=== PATIENT | male | born 1970 | race Caucasian/White ===

== ENCOUNTER 2018-03-30 18:09 | Observation (INO) ==
[2018-03-30] MEDS ORDERED: IOPAMIDOL 100 ML BOTTLE IV ONE (18:46)
[2018-03-30] MEDS ORDERED: NALOXONE HCL 0.4 MG/ML VIAL IV PRN (19:07)
[2018-03-30] MEDS ORDERED: ACETAMINOPHEN 325 MG TABLET PO PRN (19:07)
[2018-03-30] MEDS ORDERED: ONDANSETRON 4 MG/2 ML VIAL IV PRN (19:07)
[2018-03-30] MEDS ORDERED: DEXTROSE 50% 50 ML VIAL IV ONE ×2 (19:08)
[2018-03-30] MEDS ORDERED: CARVEDILOL 12.5 MG TABLET PO SCH ×2 (19:15→20:45)
[2018-03-30] MEDS ORDERED: hydrALAZINE 20 MG/ML VIAL IV PRN (19:19)
[2018-03-30] MEDS ORDERED: CARVEDILOL 12.5 MG TABLET PO ONE (19:45)
[2018-03-30] MEDS: 0.9 % SODIUM CHLORIDE 10 ML SYRINGE IV SCH ×2 (19:58→22:20)
[2018-03-30] MEDS: HEPARIN 5,000 UNIT/ML VIAL SQ SCH (19:58)
--- NOTE | 2018-03-30 20:00 | XRay Report ---
HISTORY: End-stage renal disease with hypokalemia and shortness of breath FINDINGS: The heart is mild to moderately enlarged but magnified by portable technique. There is no congestive heart failure or pleural effusion. The lungs are clear. The cardiomegaly has remained stable since 08/29/17. IMPRESSION: Stable cardiomegaly and no evidence of pneumonia or fluid overload Interpreted and Authenticated by: Cisco Murphy 03/30/18
--- NOTE | 2018-03-30 20:02 | XRay Report ---
HISTORY: Diarrhea and end-stage renal disease FINDINGS: The bowel gas pattern is normal. There is no bowel dilatation or abnormal air-fluid levels. No free intra-abdominal air is present. Several vascular calcifications are present in the pelvis and there are also calcifications in the prostate. Mild arthritis is seen in the lumbar spine. IMPRESSION: Normal exam Interpreted and Authenticated by: Cisco Murphy 03/30/18
[2018-03-30] MEDS ORDERED: oxyCODONE HCL 5 MG TABLET PO PRN (20:39)
--- NOTE | 2018-03-30 21:01 | Internal Med History&Physical ---
Medical - H&P: HPI Patient information: Note initiated : 03/30/18 at 8:43 pm Service Date, if different from initiated Date: [] Patient: Blake Camacho 47 y/o M admitted on 03/30/18 for hypokalemia, end stage renal. Chief Complaint: [] History of present illness: Mr. Camacho is a 47 year old M with h/o ESRD on HD, secondary to polycystic Kidney disease, the patient presented to [facility] emergency room today for not feeling well since this morning. The patient had been experiencing severe diarrhea for 1 day. The patient notes he was doing okay yesterday. He noticed some nausea, weakness fatigue. He is experienced these symptoms before when his potassium level was elevated and therefore he decided to come to the ER. The patient notes he had taken some antibiotics a week ago? The patient otherwise denies any other complaints or concerns. In the emergency room at [facility] the patient was hemodynamically stable, blood pressure elevated. Labs showed hemoglobin of 12.9, WBC 7.8 platelets 241. Sodium 133, potassium 9.0 bicarbonate 22 BUN 130 creatinine 12.9 glucose 90 calcium 9.5. EKG showed signs of hyperkalemia like peaked T waves, prolonged OK interval and widening of QRS complex. The patient was given hyperkalemia protocol in the emergency room at [facility] and nephrology was consulted. [facility] does not have dialysis, and therefore the patient was transferred to [facility] for urgent dialysis. On presentation at [facility] the patient was hemodynamically stable afebrile, blood pressure was elevated however the patient was also in mild distress, he was sweating all over, his glucose level was 50. Likely secondary to dextrose and insulin injection given as part of hyperkalemia protocol. Patient was given D50, along with sandwiches to eat. Nephrology was consulted and dialysis orders were placed. Liqoc-yo-[id number] chemistry was done on admission which showed that the patient's potassium had dropped down to 7.4 All systems: reviewed and no additional remarkable complaints except as stated ( As per HPI rest negative) Medical - H&P: PMH Medical history: Medical History (Last Reviewed 11/02/16 @ 14:23 by Teresa Hewitt DO) Amyloidosis (Suspected) Hand arthropathy (Acute) Rash and nonspecific skin eruption (Chronic) Light cigarette smoker (1-9 cigarettes per day) (Chronic) Marijuana use (Chronic) Chewing tobacco use (Chronic) Polycystic kidney disease (Chronic ~1985) AV fistula (Chronic) Vitamin D deficiency (Chronic) Tobacco abuse (Chronic) Renal osteodystrophy (Chronic) Prostate infection (Chronic) Obesity (Chronic) Lumbar disc disease (Chronic) Hyperlipidemia (Chronic) Low back pain (Chronic) Hypertension, essential (Chronic) Hearing loss (Chronic) Electrolyte and fluid disorders not elsewhere classified (Chronic) Chronic kidney disease, stage V (Chronic) Bladder disorder (Chronic) Hematuria (Acute) Lower extremity edema (Acute) Abscess of skin (Acute) Headache (Acute) Anxiety disorder (Resolved) Idiopathic hypersomnia with long sleep time (Resolved) Nonspecific finding on examination of urine (Resolved) Stress reaction, acute (Resolved) Surgical history: Past Surgical History (Last Reviewed 11/02/16 @ 14:23 by Teresa Hewitt DO) History of surgery (Chronic ~04/2011) Pertinent family history: Family History (Last Reviewed 11/02/16 @ 14:23 by Teresa Hewitt DO) Mother Arthritis Breast cancer Diabetes Cancer of intestinal tract Father Hypertension, essential Polycystic kidney, autosomal dominant Family/Other Polycystic kidney, autosomal dominant Polycystic kidney disease Family/Other Polycystic kidney disease Medical - H&P: Meds Home Medications Medication Instructions Recorded Confirmed Type Calcium Acetate [Phoslo] 2,001 mg PO TIDCC 03/14/15 11/02/16 History Cinacalcet HCl [Sensipar] 60 mg PO HS 03/14/15 11/02/16 History Ergocalciferol (Vitamin D2) 50,000 unit PO WEEKLY 03/14/15 11/02/16 History [Drisdol] Folic Acid/Vit Bcomp,C [Dialyvite 1 each PO DAILY 03/14/15 11/02/16 History Tablet] Loperamide [Imodium] 2 mg PO PRN PRN 03/14/15 11/02/16 History Nulecit 62.5 mg IV WEEKLY 03/14/15 11/02/16 History Nutritional Supplement [Novasource 237 ml PO WEEKLY 03/14/15 11/02/16 History Renal] Carvedilol [Coreg] 25 mg PO BID 03/26/16 11/02/16 History metronidazole 0.75 % topical cream 1 applic TOPICAL BID #45 g 10/19/16 11/02/16 Rx rosuvastatin 10 mg tablet 10 mg PO QDAY #30 tab 11/02/16 11/02/16 Rx oxyCODONE/APAP [Percocet 5-325 mg] 1 tab PO Q4-6H PRN #10 tab 12/14/16 Rx Allergies Allergy/AdvReac Type Severity Reaction Status Date / Time lisinopril [LISINOPRIL] Allergy Unknown SHUTS DOWN Verified 11/02/16 14:12 KIDNEYS Penicillins [PENICILLINS] Allergy Unknown RASH, STOP Verified 11/02/16 14:12 BREATHING, AMOXICILLIN IS OK, KEFLEX OK tramadol [TRAMADOL] Allergy Unknown NAUSEA Verified 11/02/16 14:12 VOMITING ketamine [KETAMINE] AdvReac Intermediate IRRATIONAL, Verified 11/02/16 14:12 EXCITABILITY, PSYCHOSIS bee venom protein (honey bee) AdvReac Unknown Verified 03/30/18 20:45 latex AdvReac Unknown Verified 03/30/18 20:45 Medical - H&P: Exam - Constitutional Exam: GENERAL: The patient is a well-developed, well-nourished, in mild distress but is alert and oriented x3. The patient had some sweating VITAL SIGNS: Reviewed and as noted elsewhere. HEENT: Head is normocephalic and atraumatic. Extraocular muscles are intact. Pupils are equal, round, and reactive to light. Nares appeared normal. Mouth appears any without lesions. Mucous membranes are moist. NECK: Normal to inspection, Supple, No lymphadenopathy or thyromegaly. LUNGS: Air entry equal on both sides, no wheezing, crackles or rhonchi noted. No accessory muscles of respiration HEART: Regular rate and rhythm normal, S1 and S2 heard, no Gallop, S3 or Rub Noted, No Gross murmur heard. ABDOMEN: Soft, nontender, and nondistended. Positive bowel sounds. No hepatosplenomegaly was noted. EXTREMITIES: No cyanosis, clubbing, rash, lesions or edema. Left arm fistula NEUROLOGIC: Cranial nerves II through XII are grossly intact. Motor and Sensory System Grossly Intact PSYCHIATRIC: Normal affect, Normal Mood. Appropriate Behavior. SKIN: No ulceration or wounds noted, No jaundice, No rash noted. Medical - H&P: A/P - Narrative A/P Narrative: A/P Acute hyperkalemia-the patient has diarrhea, did not miss his hemodialysis correction, he is does hemodialysis I believe Saturday was scheduled to have dialysis tomorrow. Denies any consumption of high potassium food, no recent changes in medications. Given that patient has experienced these episodes in the past I wonder if patient is fully aware of low K diet. End-stage renal disease-patient has elevated BUN and creatinine, BUN was 130, dialysis planned today. Nephrology has been consulted. Hypertension-uncontrolled blood pressure reviewed home dose of Coreg to be given , IV hydralazine to help with blood pressure management. We will review how the patient's blood pressure does after dialysis. DVT hep sq Diet Renal diet Full code Social History - Social History marital status: single - Tobacco smoking status: Current every day smoker - Tobacco Type tobacco type: cigarettes, smokeless tobacco - Alcohol alcohol intake frequency: holiday/special occasion only - Substance use substance use type: marijuana
[2018-03-31] MEDS ORDERED: LORazepam 2 MG/ML VIAL IV PRN ×2 (02:19→13:11)
[2018-03-31] MEDS ORDERED: LORazepam 2 MG/ML VIAL ONE ×3 (02:31→03:14)
[2018-03-31] MEDS ORDERED: IPRATROPIUM/ALBUTEROL 3 ML AMPUL.NEB NEB ONE ×2 (04:00→04:06)
[2018-03-31] MEDS: 0.9 % SODIUM CHLORIDE 10 ML SYRINGE IV SCH (05:10)
[2018-03-31 05:40] LABS: Basophils # (Auto) 0 K/mcL (0.0-0.3); Basophils % (Auto) 0.5 % (0.0-2.0); Eosinophils # (Auto) 0.3 K/mcL (0.0-0.7); Eosinophils % (Auto) 3.8 % (0.0-7.0); Lymphocytes # (Auto) 1.3 K/mcL (1.5-4.8); Mean Cell Volume 92.2 fL (80.0-100.0); Mean Corpuscular HGB Conc 32.4 g/dL (31.0-36.0); Mean Corpuscular Hemoglobin 29.9 pg (26.0-34.0); Monocytes # (Auto) 1.1 K/mcL (0.1-0.9); Monocytes % (Auto) 14.7 % (1.0-12.0); Platelet Count 236 K/mcL (140-440); RBC 4.36 M/mcL (4.50-5.90); Red Cell Distribution Width 18.6 % (11.5-14.5)
[2018-03-31 06:17] LABS: ALT/SGPT 18 U/l (0-40); Albumin 4.2 gm/dL (3.2-5.2); Albumin/Globulin Ratio 1.4 (1.0-2.3); Alkaline Phosphatase 76 U/L (39-117); Bilirubin,Direct < 0.2 mg/dL (0.0-0.3); Blood Urea Nitrogen 53 mg/dl (6-20); Gamma Glutamyl Transpeptidase 40 U/L (8-61); Uric Acid 3.2 mg/dL (2.5-8.0)
--- NOTE | 2018-03-31 08:02 | Nephrology Progress Note ---
Subjective Patient information: Note initiated : 03/31/18 at 7:59 am Service Date, if different from initiated Date: [] Patient: Blake Camacho 47 y/o M admitted on 03/30/18 for hypokalemia, end stage renal. Chief Complaint: [] Diarrhea Objective - Vital Signs Vital signs: Vital Signs Temp Pulse Resp BP Pulse Ox 03/31/18 06:01 21 126/83 03/31/18 05:41 16 166/131 03/31/18 05:21 19 185/132 03/31/18 05:02 69 22 201/105 73 L 03/31/18 04:25 97.2 F 23 H 03/31/18 04:21 16 03/31/18 04:02 116 H 24 H 179/139 72 L 03/31/18 03:00 93 H 20 177/152 91 03/31/18 02:12 95 H 18 81 L 03/31/18 02:01 91 H 19 158/91 97 03/31/18 01:30 94 H 21 175/104 84 L 03/31/18 01:00 94 H 19 156/91 90 03/31/18 00:33 98.7 F 98 H 173/105 03/31/18 00:30 95 H 19 175/120 98 03/31/18 00:24 97.2 F 90 16 173/105 97 03/31/18 00:02 96.8 F L 94 H 16 182/114 100 03/30/18 23:31 96 H 16 192/95 99 03/30/18 23:02 93 H 160/143 03/30/18 23:00 96 H 17 160/143 100 03/30/18 22:36 98 H 21 99 03/30/18 22:30 97 H 19 141/126 100 03/30/18 22:22 103 H 173/88 03/30/18 22:01 99 H 14 173/88 98 03/30/18 21:56 98.7 F 97 H 15 182/86 100 03/30/18 21:31 94 H 21 194/87 93 03/30/18 21:30 98.7 F 94 H 194/87 03/30/18 21:15 97.8 F 96 H 180/149 03/30/18 21:04 97.8 F 87 176/151 03/30/18 21:00 91 H 19 180/149 100 03/30/18 20:55 105 H 15 176/151 98 03/30/18 20:31 88 17 210/127 97 03/30/18 20:00 97.8 F 90 16 217/129 94 03/30/18 19:31 84 14 200/119 100 03/30/18 19:00 25 H 209/139 99 Intake and Output 03/30/18 03/31/18 03/31/18 21:59 05:59 13:59 Intake Total 600 / 600 Output Total 3900 / 3900 Balance 600 / 600 -3900 / -3900 Intake: Oral 600 / 600 Output: Hemodialysis UF 3900 / 3900 Other: Meal Dinner Percent of Meal Consumed 100% Feeding Ability Independent # Voids 4 # Bowel Movements 0 Weight 224 lb 3.2 oz Intake & Output: Intake & Output 03/30/18 03/31/18 03/31/18 21:59 05:59 13:59 Intake Total 600 / 600 Output Total 3900 / 3900 Balance 600 / 600 -3900 / -3900 Weight 224 lb 3.2 oz Intake: Oral 600 / 600 Output: Hemodialysis UF 3900 / 3900 Other: Meal Dinner Percent of Meal Consumed 100% Feeding Ability Independent # Voids 4 # Bowel Movements 0 - General Appearance General appearance: well-developed EENT: ATNC Neck: no JVD Respiratory: no kyphosis Cardiology: no murmurs Gastrointestinal: normoactive bowel sounds Integumentary: no rash Neurologic: no focal deficit - Lab 03/31/18 04:00 03/31/18 04:00 Most recent lab results Calcium 9.0 mg/dl (8.6-10.4) 03/31/18 04:00 Phosphorus 6.4 mg/dL (2.7-4.5) H* 03/31/18 04:00 Magnesium 2.1 mg/dL (1.6-2.5) 03/31/18 04:00 Assessment and Plan (1) Polycystic kidney disease Status: Chronic Comment: Hyperkalemia. better. Not sure what the etiology is. He does not miss dialysis, had his fistula worked on recently and it is ok. I think it is mostly related to diet. He is supposed to take kayexalate daily at home but may be not taking. Will dialyse again today and then he can be discharged with Kayexalate 15gms once a day.
--- NOTE | 2018-03-31 08:56 | XRay Report ---
CLINICAL INFORMATION: Hypoxia COMPARISON: Chest x-rays from 05/18/2012 and 03/30/2018 FINDINGS: The heart is mildly enlarged, but accentuated by suboptimal inspiratory result and portable technique. The right hilum is now enlarged compared to older studies. The vessels are mildly distended. Mild atelectasis in the right base. No definite effusion IMPRESSION: 1. Mild CHF or volume overload 2. Enlarged right hilum - suggest chest CT to exclude mass or adenopathy. If the patient can tolerate iodinated contrast, this could be ordered as a CT pulmonary angiogram to exclude pulmonary embolus. Interpreted and Authenticated by: Umberto Rocha 03/31/18
[2018-03-31] MEDS ORDERED: CARVEDILOL 12.5 MG TABLET PO SCH ×2 (09:15→13:11)
[2018-03-31] MEDS: HEPARIN 5,000 UNIT/ML VIAL SQ SCH (10:33)
--- NOTE | 2018-03-31 10:39 | Cat Scan Report ---
CLINICAL INFORMATION: Right hilar enlargement and hypoxia COMPARISON: None. TECHNIQUE: 80 cc of Isovue-300 were injected intravenously, and 25 seconds later, 0.625 mm helical slices were obtained from the lung apices through the bases. Following reconstruction, 2.5 mm sagittal, coronal and axial reformations were processed and reviewed at lung, mediastinal and bone windows. 7 mm axial MIPS were also obtained to optimize pulmonary nodule detection. The exam was performed using radiation dose optimization techniques including, but not limited to, automated exposure control, adjustment of the mA and/or kV according to patient size and use of iterative reconstruction technique. FINDINGS: Mediastinal windows show mild enlargement of the central pulmonary arteries: The main pulmonary diameter is 3.7 cm. No evidence of central pulmonary embolus. (The exam was ordered as a standard chest CT with contrast rather than a CT pulmonary angiogram therefore the pulmonary artery opacification is suboptimal and peripheral emboli cannot be excluded) is a. The heart is moderately enlarged with moderately heavy fibrofatty and calcific plaque in the proximal coronary arteries. There is also thickening in the mitral valve. The thoracic aorta is normal in contour and caliber. There is no adenopathy in the mediastinal hilar or axillary regions. No evidence of right hilar mass which was suspected on plain film. Pulmonary parenchymal windows show mild bronchovascular edema throughout both lungs. No focal infiltrates or nodules. Pleural spaces are normal. Bones and soft tissues the chest wall are normal IMPRESSION: 1. Mild bronchovascular edema compatible with resolving CHF or volume overload. 2. No evidence of right hilar mass which was suspected on plain film 3. Scattered hepatic cysts. Multiple cysts replacing the visualized renal parenchyma compatible with APKD. This was also seen on prior abdomen and pelvic CT 12/14/2016 Interpreted and Authenticated by: Umberto Rocha 03/31/18
--- NOTE | 2018-03-31 12:51 | Internal Med Progress Note ---
Medical - PN: Subj Patient information: Note initiated : 03/31/18 at 12:49 pm Service Date, if different from initiated Date: [] Patient: Blake Camacho 47 y/o M admitted on 03/30/18 for Hypokalemia, End Stage Renal. Chief Complaint: [] Interval history: Mr. Camacho is a 47 year old M with h/o ESRD on HD, secondary to polycystic Kidney disease, the patient presented to [facility] emergency room today for not feeling well since this morning. The patient had been experiencing severe diarrhea for 1 day. The patient notes he was doing okay yesterday. He noticed some nausea, weakness fatigue. He is experienced these symptoms before when his potassium level was elevated and therefore he decided to come to the ER. The patient notes he had taken some antibiotics a week ago? The patient otherwise denies any other complaints or concerns. In the emergency room at [facility] the patient was hemodynamically stable, blood pressure elevated. Labs showed hemoglobin of 12.9, WBC 7.8 platelets 241. Sodium 133, potassium 9.0 bicarbonate 22 BUN 130 creatinine 12.9 glucose 90 calcium 9.5. EKG showed signs of hyperkalemia like peaked T waves, prolonged MD interval and widening of QRS complex. The patient was given hyperkalemia protocol in the emergency room at [facility] and nephrology was consulted. [facility] does not have dialysis, and therefore the patient was transferred to [facility] for urgent dialysis. On presentation at [facility] the patient was hemodynamically stable afebrile, blood pressure was elevated however the patient was also in mild distress, he was sweating all over, his glucose level was 50. Likely secondary to dextrose and insulin injection given as part of hyperkalemia protocol. Patient was given D50, along with sandwiches to eat. Nephrology was consulted and dialysis orders were placed. Nawhc-zh-tryi chemistry was done on admission which showed that the patient's potassium had dropped down to 7.4 03/31 Patient seen and examined, acute overnight events reviewed. Patient had dialysis yesterday, potassium this morning is still elevated at 5.2. The patient will have repeat dialysis today. The patient was a bit confused last night, he was very hypoxic whenever he tried to sleep his oxygen saturation improved as soon as he woke up. Patient is snoring heavily and has have had frequent apnea spells. It seems patient does have a history of obstructive sleep apnea. He supposed to be on a CPAP device however is not wearing one. The patient would like to use a nasal mask CPAP if possible. He has been quite noncompliant with nasal oxygen or the CPAP at night. Oral exam shows a very long uvula on exam, Chest x ray shows mediastinal mass, CT with contrast ordered, HD after CT Pt this AM has no complaints or concerns, able to tolerate breakfast well, but goes to sleep often ABG reviewed, Pertinent ROS: Denies headache, dizziness Denies chest pain, palpitations Denies cough or shortness of breath Denies abdominal pain, nausea or vomiting. - Constitutional Vitals: Vital Signs Temp Pulse Resp BP Pulse Ox 98.7 F 69 20 128/89 90 03/31/18 12:22 03/31/18 05:02 03/31/18 12:22 03/31/18 12:22 03/31/18 12:22 Period Temp Pulse Resp BP Sys/Lyles Pulse Ox Last 24 Hr 96.8 F-98.7 F 69-116 13-29 126-217/83-154 72-100 Intake and Output 03/30/18 03/31/18 03/31/18 21:59 05:59 13:59 Intake Total 600 / 600 320 / 320 Output Total 3900 / 3900 Balance 600 / 600 -3900 / -3900 320 / 320 Weight 224 lb 3.2 oz Intake & Output: Intake & Output 03/30/18 03/31/18 03/31/18 21:59 05:59 13:59 Intake Total 600 / 600 320 / 320 Output Total 3900 / 3900 Balance 600 / 600 -3900 / -3900 320 / 320 Weight 224 lb 3.2 oz Intake: Oral 600 / 600 320 / 320 Output: Hemodialysis UF 3900 / 3900 Other: Meal Dinner Breakfast Percent of Meal Consumed 100% 100% Feeding Ability Independent # Voids 4 # Bowel Movements 0 Exam: Constitutional; Afebrile, cooperative, alert, not in distress. Respiratory system: Air Entry equal on both sides, No crackles or wheezing, no rhonchi. CVS- Rate rhythm regular, S1,S2 heard, no gallop, no rub. Abdomen- Soft nontender abdomen, no organomegaly, no tenderness, no guarding or rigidity, [employer]- AOOx3, moving all extremities, no gross focal deficit noted. Oral exam- oropharynx shows large / long uvula. Medical - PN: Obj Da - Labs CBC & Chem 7: 03/31/18 04:00 03/31/18 04:00 Labs: Abnormal Lab Results 03/31/18 03/31/18 03/30/18 04:00 04:00 19:14 RBC 4.36 L Hgb 13.0 L Hct 40.2 L RDW 18.6 H [place] % (Auto) 14.7 H Lymph # (Auto) 1.3 L [place] # (Auto) 1.1 H POC Sodium 132 L POC Potassium 7.4 H* Potassium 5.3 H Chloride 92 L Anion Gap 18.0 H POC BUN 127 H* BUN 53 H Creatinine 7.4 H* POC Creatinine 13.1 H* Glucose 62 L POC Glucose 300 H Phosphorus 6.4 H* Lactate Dehydrogenase 275 H Triglycerides 153 H Meds: Medications Acetaminophen (Tylenol) 650 mg PO Q4-6HP PRN PRN Reason: PAIN/FEVER > 101 Carvedilol (Coreg) 25 mg PO ONCE MARY Last Admin: 03/31/18 10:32 Dose: 25 mg Heparin Sodium (Porcine) (Heparin) 5,000 unit SQ Q12 MARY Last Admin: 03/31/18 10:33 Dose: 5,000 unit Hydralazine HCl (Apresoline) 10 mg IV Q4HP PRN PRN Reason: Hypertension Last Admin: 03/31/18 05:05 Dose: 10 mg Lorazepam (Ativan) 0.5 mg IV Q1H PRN PRN Reason: ANXIETY/SEDATION Naloxone HCl (Narcan) 0.1 mg IV Q2MIN PRN PRN Reason: Opiate Reversal Ondansetron HCl (Zofran) 4 mg IV Q4-6HP PRN PRN Reason: Nausea And Vomiting Oxycodone HCl (Roxicodone) 5 mg PO Q4HP PRN PRN Reason: pain not responding to tylenol Pneumococcal Polyvalent Vaccine (Pneumovax 23) 0.5 ml IM .ONCE ONE Stop: 04/01/18 10:01 Sodium Chloride (Saline Flush) 10 ml IV Q8 MARY Last Admin: 03/31/18 05:10 Dose: 10 ml Medical - PN: A/P - Time Spent With Patient Total time spent is greater than 50% in coordination of care (as documented) at patient's floor/unit and/or counseling patient: - Narrative A/P Narrative: A/P Acute hyperkalemia-etiology? HD session planned today, K improving. monitor on tele End-stage renal disease-dialysis per nephrology TONNY- Patient appears to have severe TONNY, will need cpap, but he is unwilling ot use same, he may benefit from ENT Evaluation for possible uvulectomy, Hypertension-resume home meds once verified, bp improving. 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 DVT hep sq Diet Renal diet Full code xfer to tele status. Medical - PN: Qual - VTE Deep Vein Thrombosis/Pulmonary Embolism Present on Admission: No
[2018-03-31] MEDS ORDERED: hydrALAZINE 20 MG/ML VIAL IV PRN (13:11)
[2018-03-31] MEDS ORDERED: oxyCODONE HCL 5 MG TABLET PO PRN (13:11)
[2018-03-31] MEDS ORDERED: ONDANSETRON 4 MG/2 ML VIAL IV PRN (13:11)
[2018-03-31] MEDS ORDERED: NALOXONE HCL 0.4 MG/ML VIAL IV PRN (13:11)
[2018-03-31] MEDS ORDERED: ACETAMINOPHEN 325 MG TABLET PO PRN (13:11)
[2018-03-31] MEDS ORDERED: 0.9 % SODIUM CHLORIDE 10 ML SYRINGE IV SCH (14:00)
[2018-03-31] MEDS ORDERED: HEPARIN 5,000 UNIT/ML VIAL SQ SCH (21:00)
[2018-04-01] MEDS ORDERED: PNEUMOCOCCAL 23-VAL P-SAC VAC 0.5 ML VIAL IM ONE (10:00)
== END 2018-03-31 19:37 | disposition left against medical advice (07) ==
LOC: ICU
PROVIDERS: ADMIT Internal Medicine; ATTEND Internal Medicine
CPT/HCPCS: 80047; 85014; 99219; G0378; J0360; J1644; J2060; J7620; J7620-GY; Q9967

== ENCOUNTER 2019-03-15 09:09 | Observation (INO) ==
--- NOTE | 2019-03-15 09:25 | Emergency Department Note ---
SOB HPI - General Chief Complaint: Shortness of Breath/Dyspnea Stated Complaint: facial swelling, SOB Time Seen by Provider: 03/15/19 09:19 Source: patient Mode of arrival: ambulatory Limitations: no limitations - History of Present Illness This is a dialysis patient of Dr. Cutler'ray who feels fluid overloaded and short of breath. His last dialysis was on Saturday and he felt like it did not take enough fluid off because they were worried about his blood pressure. He was seen in the emergency room yesterday and again not run through dialysis though he was hopeful that they would. He came back again this morning feeling the same way and hopes that we will run him today. He has no chest pain no cough no fever chills nausea or vomiting. His potassium level yesterday was 4.8. - Related Data Home Medications Medication Instructions Recorded Confirmed Calcium Acetate [Phoslo] 2,001 mg PO TIDCC 03/14/15 03/14/19 Cinacalcet HCl [Sensipar] 60 mg PO HS 03/14/15 03/14/19 Ergocalciferol (Vitamin D2) 50,000 unit PO WEEKLY 03/14/15 11/02/16 [Drisdol] Folic Acid/Vit Bcomp,C [Dialyvite 1 each PO DAILY 03/14/15 11/02/16 Tablet] Loperamide [Imodium] 2 mg PO PRN PRN 03/14/15 11/02/16 Nulecit 62.5 mg IV WEEKLY 03/14/15 11/02/16 Nutritional Supplement [Novasource 237 ml PO WEEKLY 03/14/15 11/02/16 Renal] Carvedilol [Coreg] 25 mg PO BID 03/26/16 03/14/19 Previous Rx's Medication Instructions Recorded metronidazole 0.75 % topical cream 1 applic TOPICAL BID #45 g 10/19/16 rosuvastatin 10 mg tablet 10 mg PO QDAY #30 tab 11/02/16 oxyCODONE/APAP [Percocet 5-325 mg] 1 tab PO Q4-6H PRN #10 tab 12/14/16 Allergies Allergy/AdvReac Type Severity Reaction Status Date / Time Penicillins [PENICILLINS] Allergy Severe RASH, STOP Verified 03/15/19 09:13 BREATHING, AMOXICILLIN IS OK, KEFLEX OK lisinopril [LISINOPRIL] Allergy Intermediate SHUTS DOWN Verified 03/15/19 09:13 KIDNEYS ketamine [KETAMINE] AdvReac Intermediate IRRATIONAL, Verified 03/15/19 09:13 EXCITABILITY, PSYCHOSIS tramadol [TRAMADOL] AdvReac Mild NAUSEA Verified 03/15/19 09:13 VOMITING latex AdvReac Unknown Verified 03/15/19 09:13 Review of Systems All systems ED: reviewed and negative except as stated. Past Medical History - Past Medical History PMFSH Narrative: Medical History (Last Reviewed 11/02/16 @ 14:23 by Teresa Hewitt DO) Amyloidosis (Suspected) Hand arthropathy (Acute) Rash and nonspecific skin eruption (Chronic) Light cigarette smoker (1-9 cigarettes per day) (Chronic) Marijuana use (Chronic) Chewing tobacco use (Chronic) Polycystic kidney disease (Chronic ~1985) AV fistula (Chronic) Vitamin D deficiency (Chronic) Tobacco abuse (Chronic) Renal osteodystrophy (Chronic) Prostate infection (Chronic) Obesity (Chronic) Lumbar disc disease (Chronic) Hyperlipidemia (Chronic) Low back pain (Chronic) Hypertension, essential (Chronic) Hearing loss (Chronic) Electrolyte and fluid disorders not elsewhere classified (Chronic) Chronic kidney disease, stage V (Chronic) Bladder disorder (Chronic) Hematuria (Acute) Lower extremity edema (Acute) Abscess of skin (Acute) Headache (Acute) Anxiety disorder (Resolved) Idiopathic hypersomnia with long sleep time (Resolved) Nonspecific finding on examination of urine (Resolved) Stress reaction, acute (Resolved) Past Surgical History (Last Reviewed 11/02/16 @ 14:23 by Teresa Hewitt DO) History of surgery (Chronic ~04/2011) Family History (Last Reviewed 11/02/16 @ 14:23 by Teresa Hewitt DO) Mother Arthritis Breast cancer Diabetes Cancer of intestinal tract Father Hypertension, essential Polycystic kidney, autosomal dominant Family/Other Polycystic kidney, autosomal dominant Polycystic kidney disease Family/Other Polycystic kidney disease Medical history: Reports: CAD (coronary artery disease), CHF, hypertension, renal disease, other Surgical history ED: Reports: vascular surgery - Social History smoking status: Former smoker Alcohol use: Reports: Rarely Drug use: Reports: none Physical Exam Limitations: no limitations General appearance: alert Head: atraumatic Eye: Present: normal appearance ENT: Present: normal exam Neck: Present: normal inspection Chest: Present: normal inspection Respiratory: Present: normal lung sounds bilaterally Cardiovascular: Present: regular rate, normal rhythm, normal heart sounds Abdominal: Present: soft. Absent: distention, tenderness Extremities: Present: pedal edema, pretibial edema Neurological: Present: alert Psychiatric: Present: normal affect Skin: Present: warm, dry Course Vital Signs Temperature 97.5 F 03/15/19 09:11 Pulse Rate 94 H 03/15/19 09:11 Respiratory Rate 23 H 03/15/19 09:11 Blood Pressure 161/98 03/15/19 09:11 Pulse Oximetry (%) 93 03/15/19 09:11 Temperature 97.5 F 03/15/19 09:11 Pulse Rate 87 03/15/19 11:46 Respiratory Rate 17 03/15/19 11:46 Blood Pressure 168/110 03/15/19 11:46 Pulse Oximetry (%) 96 03/15/19 11:46 Shortness of Breath/Dyspnea - MDM Narrative Medical decision making narrative: I discussed this case with Dr. 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 The hospitalist will also be involved in the admission. This most likely can be an observation admission for the afternoon. - Lab Data Lab results reviewed: Yes I reviewed the patient's lab results. Result diagrams: 03/15/19 09:20 03/15/19 09:20 Lab Results 03/15/19 03/15/19 03/15/19 Range/Units 09:14 09:20 09:20 WBC 8.0 (4.5-11.0) K/mcL RBC 5.27 (4.50-5.90) M/mcL Hgb 15.7 (13.5-16.5) g/dL Hct 49.2 (41.0-55.0) % POC Hct 51.0 (41.0-55.0) % MCV 93.4 (80.0-100.0) fL MCH 29.8 (26.0-34.0) pg MCHC 31.9 (31.0-36.0) g/dL RDW 16.8 H (11.5-14.5) % Plt Count 192 (140-440) K/mcL MPV 7.2 L (7.4-10.4) fL Gran % 65.4 (38.0-78.0) % Lymph % (Auto) 14.0 L (15.5-49.0) % [place] % (Auto) 15.6 H (1.0-12.0) % Eos % (Auto) 4.6 (0.0-7.0) % Baso % (Auto) 0.4 (0.0-2.0) % Gran # 5.2 (1.8-8.0) K/mcL Lymph # (Auto) 1.1 L (1.5-4.8) K/mcL [place] # (Auto) 1.2 H (0.1-0.9) K/mcL Eos # (Auto) 0.4 (0.0-0.7) K/mcL Baso # (Auto) 0 (0.0-0.3) K/mcL POC Sodium 132 L (133-145) mmol/L Sodium 133 (133-145) mmol/L POC Potassium 5.0 (3.3-5.1) mmol/L Potassium 5.2 H (3.3-5.1) mmol/L POC Chloride 97 (96-108) mmol/L Chloride 89 L (96-108) mmol/L Carbon Dioxide 23 (22-30) mmol/L POC Total CO2 29 (22-30) mmol/L Anion Gap 21.0 H (8-16) POC BUN 74 H (6-20) mg/dl BUN 59 H (6-20) mg/dl Creatinine 9.0 H* (0.7-1.2) mg/dl POC Creatinine 10.3 H* (0.7-1.2) mg/dl GFR Calculation 6 Glucose 88 (70-105) mg/dL POC Glucose 93 (70-105) mg/dL Calcium 8.1 L (8.6-10.4) mg/dl POC WB Ioniz Calcium 0.94 L (1.16-1.32) mmol/L Total Bilirubin 0.5 (0.0-1.0) mg/dL AST 22 (0-37) U/l ALT 10 (0-40) U/l Alkaline Phosphatase 109 (39-117) U/L Troponin T (0-0.03) ng/ml NT-Pro-B Natriuret Pep 55859.0 H (0-125) pg/ml Total Protein 7.1 (5.9-8.4) gm/dL Albumin 4.1 (3.2-5.2) gm/dL Globulin 3.0 (2.2-3.7) gm/dL Albumin/Globulin Ratio 1.4 (1.0-2.3) 03/15/19 Range/Units 09:20 WBC (4.5-11.0) K/mcL RBC (4.50-5.90) M/mcL Hgb (13.5-16.5) g/dL Hct (41.0-55.0) % POC Hct (41.0-55.0) % MCV (80.0-100.0) fL MCH (26.0-34.0) pg MCHC (31.0-36.0) g/dL RDW (11.5-14.5) % Plt Count (140-440) K/mcL MPV (7.4-10.4) fL Gran % (38.0-78.0) % Lymph % (Auto) (15.5-49.0) % [place] % (Auto) (1.0-12.0) % Eos % (Auto) (0.0-7.0) % Baso % (Auto) (0.0-2.0) % Gran # (1.8-8.0) K/mcL Lymph # (Auto) (1.5-4.8) K/mcL [place] # (Auto) (0.1-0.9) K/mcL Eos # (Auto) (0.0-0.7) K/mcL Baso # (Auto) (0.0-0.3) K/mcL POC Sodium (133-145) mmol/L Sodium (133-145) mmol/L POC Potassium (3.3-5.1) mmol/L Potassium (3.3-5.1) mmol/L POC Chloride (96-108) mmol/L Chloride (96-108) mmol/L Carbon Dioxide (22-30) mmol/L POC Total CO2 (22-30) mmol/L Anion Gap (8-16) POC BUN (6-20) mg/dl BUN (6-20) mg/dl Creatinine (0.7-1.2) mg/dl POC Creatinine (0.7-1.2) mg/dl GFR Calculation Glucose (70-105) mg/dL POC Glucose (70-105) mg/dL Calcium (8.6-10.4) mg/dl POC WB Ioniz Calcium (1.16-1.32) mmol/L Total Bilirubin (0.0-1.0) mg/dL AST (0-37) U/l ALT (0-40) U/l Alkaline Phosphatase (39-117) U/L Troponin T 0.09 H* (0-0.03) ng/ml NT-Pro-B Natriuret Pep (0-125) pg/ml Total Protein (5.9-8.4) gm/dL Albumin (3.2-5.2) gm/dL Globulin (2.2-3.7) gm/dL Albumin/Globulin Ratio (1.0-2.3) - Radiology Data Radiology results reviewed: Yes I reviewed the patient's radiology results. Disposition Pt seen by SALES DEPARTMENT SUPERVISOR/PA only: No Clinical Impression: Congestive heart failure, Chronic kidney disease, stage V Disposition: Xfer As Outpt/Obs ([facility]) Condition: Good Referrals: Jaylon Cutler MD [Primary Care Provider] - Time of Disposition: 12:03
[2019-03-15 09:27] LABS: POC Blood Urea Nitrogen 74 mg/dl (6-20); POC CO2 29 mmol/L (22-30); POC Calcium, Ionized 0.94 mmol/L (1.16-1.32); POC Chloride 97 mmol/L (96-108); POC Creatinine 10.3 mg/dl (0.7-1.2); POC Glucose, Random 93 mg/dL (70-105); POC Sodium 132 mmol/L (133-145)
[2019-03-15 10:09] LABS: Basophils # (Auto) 0 K/mcL (0.0-0.3); Basophils % (Auto) 0.4 % (0.0-2.0); Eosinophils # (Auto) 0.4 K/mcL (0.0-0.7); Eosinophils % (Auto) 4.6 % (0.0-7.0); Granulocytes % (Auto) 65.4 % (38.0-78.0); Hematocrit 49.2 % (41.0-55.0); Hemoglobin 15.7 g/dL (13.5-16.5); Lymphocytes # (Auto) 1.1 K/mcL (1.5-4.8); Mean Cell Volume 93.4 fL (80.0-100.0); Mean Corpuscular HGB Conc 31.9 g/dL (31.0-36.0); Mean Platelet Volume 7.2 fL (7.4-10.4); Monocytes # (Auto) 1.2 K/mcL (0.1-0.9); Monocytes % (Auto) 15.6 % (1.0-12.0); Platelet Count 192 K/mcL (140-440); RBC 5.27 M/mcL (4.50-5.90); Red Cell Distribution Width 16.8 % (11.5-14.5)
[2019-03-15 10:33] LABS: ALT/SGPT 10 U/l (0-40); AST/SGOT 22 U/l (0-37); Albumin 4.1 gm/dL (3.2-5.2); Albumin/Globulin Ratio 1.4 (1.0-2.3); Alkaline Phosphatase 109 U/L (39-117); Bilirubin,Total 0.5 mg/dL (0.0-1.0); Blood Urea Nitrogen 59 mg/dl (6-20); Calcium 8.1 mg/dl (8.6-10.4); Carbon Dioxide 23 mmol/L (22-30); Chloride 89 mmol/L (96-108); Glomerular Filtration Rate 6; Glucose 88 mg/dL (70-105)
--- NOTE | 2019-03-15 12:19 | Internal Med History&Physical ---
Medical - H&P: [facility] Patient information: Note initiated : 03/15/19 at 12:17 pm Service Date, if different from initiated Date: [] Patient: Blake Camacho 48 y/o M admitted on for facial swelling, SOB. Chief Complaint: [] History of present illness: Mr. Camacho is a 48 year old M Who presents with facial swelling and shortness of breath. He was hypoxic in the ED at 87% on room air. Called dialysis and Dr. Cutler asked him to go the ER for dialysis. Chest x-ray little more congested than previous. Denies chest pain. He was recently sent up to [place] on for some chest pain that he presented to [facility] with. He had a cardiac stress test and was told essentially unremarkable. Patient was discharged the other day. Denies cough. Review of Systems: Pertinent positives as above. Denies headache/fever/chills/nausea/vomiting/chest or abdominal pain/cough/diarrhea. Remaining 10 point review of system reviewed negative Medical - H&P: [facility] Medical history: Medical History (Last Reviewed 11/02/16 @ 14:23 by Teresa Hewitt DO) Amyloidosis (Suspected) Hand arthropathy (Acute) Rash and nonspecific skin eruption (Chronic) Light cigarette smoker (1-9 cigarettes per day) (Chronic) Marijuana use (Chronic) Chewing tobacco use (Chronic) Polycystic kidney disease (Chronic ~1985) AV fistula (Chronic) Vitamin D deficiency (Chronic) Tobacco abuse (Chronic) Renal osteodystrophy (Chronic) Prostate infection (Chronic) Obesity (Chronic) Lumbar disc disease (Chronic) Hyperlipidemia (Chronic) Low back pain (Chronic) Hypertension, essential (Chronic) Hearing loss (Chronic) Electrolyte and fluid disorders not elsewhere classified (Chronic) Chronic kidney disease, stage V (Chronic) Bladder disorder (Chronic) Hematuria (Acute) Lower extremity edema (Acute) Abscess of skin (Acute) Headache (Acute) Anxiety disorder (Resolved) Idiopathic hypersomnia with long sleep time (Resolved) Nonspecific finding on examination of urine (Resolved) Stress reaction, acute (Resolved) Past Surgical History (Last Reviewed 11/02/16 @ 14:23 by Teresa Hewitt DO) History of surgery (Chronic ~04/2011) Family History (Last Reviewed 11/02/16 @ 14:23 by Teresa Hewitt DO) Mother Arthritis Breast cancer Diabetes Cancer of intestinal tract Father Hypertension, essential Polycystic kidney, autosomal dominant Family/Other Polycystic kidney, autosomal dominant Polycystic kidney disease Family/Other Polycystic kidney disease Social History (Last Reviewed 11/02/16 @ 14:23 by Teresa Hewitt DO) Patient quit smoking cigarettes and chewing tobacco 6 months ago Uses marijuana several times a week Drinks alcohol rarely Medical - H&P: Meds Home Medications Medication Instructions Recorded Confirmed Type Calcium Acetate [Phoslo] 2,001 mg PO TIDCC 03/14/15 03/14/19 History Cinacalcet HCl [Sensipar] 60 mg PO HS 03/14/15 03/14/19 History Ergocalciferol (Vitamin D2) 50,000 unit PO WEEKLY 03/14/15 11/02/16 History [Drisdol] Folic Acid/Vit Bcomp,C [Dialyvite 1 each PO DAILY 03/14/15 11/02/16 History Tablet] Loperamide [Imodium] 2 mg PO PRN PRN 03/14/15 11/02/16 History Nulecit 62.5 mg IV WEEKLY 03/14/15 11/02/16 History Nutritional Supplement [Novasource 237 ml PO WEEKLY 03/14/15 11/02/16 History Renal] Carvedilol [Coreg] 25 mg PO BID 03/26/16 03/14/19 History metronidazole 0.75 % topical cream 1 applic TOPICAL BID #45 g 10/19/16 11/02/16 Rx rosuvastatin 10 mg tablet 10 mg PO QDAY #30 tab 11/02/16 11/02/16 Rx oxyCODONE/APAP [Percocet 5-325 mg] 1 tab PO Q4-6H PRN #10 tab 12/14/16 Rx Allergies Allergy/AdvReac Type Severity Reaction Status Date / Time Penicillins [PENICILLINS] Allergy Severe RASH, STOP Verified 03/15/19 09:13 BREATHING, AMOXICILLIN IS OK, KEFLEX OK lisinopril [LISINOPRIL] Allergy Intermediate SHUTS DOWN Verified 03/15/19 09:13 KIDNEYS ketamine [KETAMINE] AdvReac Intermediate IRRATIONAL, Verified 03/15/19 09:13 EXCITABILITY, PSYCHOSIS tramadol [TRAMADOL] AdvReac Mild NAUSEA Verified 03/15/19 09:13 VOMITING latex AdvReac Unknown Verified 03/15/19 09:13 Medical - H&P: Exam - Constitutional Vitals: Temp Pulse Resp BP Pulse Ox 97.5 F 96 H 18 165/151 95 03/15/19 09:11 03/15/19 12:02 03/15/19 12:02 03/15/19 12:02 03/15/19 12:02 Exam: General: Alert, Awake, No acute Distress, obese Eyes/N/T: EOMI, PEERL, eyelid edema Head/Neck: neck supple, normocephalic atraumatic CV: RRR, No murmurs, normal s1/s2 Pulm: Subtle rales laterally B/L, no wheezing Abd: soft, nontender, +BS x4 Ext: no clubbing/cyanosis, 1+ LE edema Neuro: Alert, no focal deficits, moves all extremities, CN 2-12 grossly intact, symmetrical strength b/l upper/lower, sensations intact b/l upper/lower Skin: warm/dry Medical - H&P: Reslt - Labs CBC & Chem 7: 03/15/19 09:20 03/15/19 09:20 Labs: Short CBC 03/15/19 Range/Units 09:20 WBC 8.0 (4.5-11.0) K/mcL Hgb 15.7 (13.5-16.5) g/dL Hct 49.2 (41.0-55.0) % Plt Count 192 (140-440) K/mcL BMP 03/15/19 09:20 Sodium 133 Potassium 5.2 H Chloride 89 L Carbon Dioxide 23 BUN 59 H Creatinine 9.0 H* Glucose 88 Calcium 8.1 L Cardiac Enzymes 03/15/19 Range/Units 09:20 Troponin T 0.09 H* (0-0.03) ng/ml Liver Function 03/15/19 Range/Units 09:20 Total Bilirubin 0.5 (0.0-1.0) mg/dL AST 22 (0-37) U/l ALT 10 (0-40) U/l Alkaline Phosphatase 109 (39-117) U/L Albumin 4.1 (3.2-5.2) gm/dL - Impressions Chest x-ray with increased pulmonary vascular congestion Medical - H&P: A/P - Narrative A/P Narrative: A: *Acute hypoxic respiratory failure: 2/2 volume overload/pulmonary edema *Pulmonary edema/volume overload: *ESRD: Follows with Dr. Cutler *Obesity: *TONNY on CPAP: But is not using at home because he does not know how to use *HTN Urgency: On Coreg *COPD: On inhalers no home oxygen needed * P: -Dr. Cutler for HD -Supplemental oxygen, wean as able -Continue blood pressure medications with as needed IV -home cpap -prn nebs -ppx: heparin
--- NOTE | 2019-03-15 12:30 | Discharge Summary ---
Medical - DS: Prov Patient information: Note initiated : 03/15/19 at 12:28 pm Service Date, if different from initiated Date: [] Patient: Blake Camacho 48 y/o M admitted on for facial swelling, SOB. Chief Complaint: [] Discharge date: 03/16/19 Primary care physician: Jaylon Cutler Consults: 03/15/19 Consult to Physician [CONS] Stat Comment: T4 Consulting Provider: Bill Grimes Reason For Exam: Physician to Consult Medical - DS: Meds - Discharge Medications Active and Home Medications: Home Medications Calcium Acetate [Phoslo] 2,001 mg PO TIDCC 03/14/15 [History Confirmed 03/14/19 Last Taken Unknown] Cinacalcet HCl [Sensipar] 60 mg PO HS 03/14/15 [History Confirmed 03/14/19 Last Taken Unknown] Ergocalciferol (Vitamin D2) [Drisdol] 50,000 unit PO WEEKLY 03/14/15 [History Confirmed 11/02/16 Last Taken Unknown] Folic Acid/Vit Bcomp,C [Dialyvite Tablet] 1 each PO DAILY 03/14/15 [History Confirmed 11/02/16 Last Taken Unknown] Loperamide [Imodium] 2 mg PO PRN PRN 03/14/15 [History Confirmed 11/02/16 Last Taken Unknown] Nulecit 62.5 mg IV WEEKLY 03/14/15 [History Confirmed 11/02/16 Last Taken Unknown] Nutritional Supplement [Novasource Renal] 237 ml PO WEEKLY 03/14/15 [History Confirmed 11/02/16 Last Taken Unknown] Carvedilol [Coreg] 25 mg PO BID 03/26/16 [History Confirmed 03/14/19 Last Taken Unknown] metronidazole 0.75 % topical cream 1 applic TOPICAL BID #45 g 10/19/16 [Rx Confirmed 11/02/16 Last Taken Unknown] rosuvastatin 10 mg tablet 10 mg PO QDAY #30 tab 11/02/16 [Rx Confirmed 11/02/16 Last Taken Unknown] oxyCODONE/APAP [Percocet 5-325 mg] 1 tab PO Q4-6H PRN #10 tab 12/14/16 [Rx Last Taken Unknown] Medical - DS: Hosp Hospital Course: Mr. Camacho is a 48 year old M Who presents with facial swelling and shortness of breath. He was hypoxic in the ED at 87% on room air. Called dialysis and Dr. Cutler asked him to go the ER for dialysis. Chest x-ray little more congested than previous. Denies chest pain. He was recently sent up to [place] on for some chest pain that he presented to [facility]. He had a cardiac stress test and was told essentially unremarkable. Patient was discharged the other day. Denies cough. 03/16 No overnight events. Off oxygen this morning. Stable for discharge. Will get outpatient dialysis today Discharge diagnosis: Volume overload pulmonary edema acute hypoxic respiratory failure hypertens Secondary discharge diagnosis: Hypertensive urgency obesity COPD obstructive sleep apnea - Time Spent with Patient Total time spent providing and/or coordinating discharge services: Greater than 30 minutes Medical - DS: Exam - Constitutional Vitals: Vital Signs Temp Pulse Resp BP BP Pulse Ox 03/15/19 12:02 96 H 18 165/151 95 03/15/19 11:46 87 17 168/110 96 03/15/19 11:35 88 14 178/100 94 03/15/19 11:17 87 20 171/87 95 03/15/19 11:02 18 186/103 03/15/19 10:47 88 18 157/133 92 03/15/19 10:34 91 H 16 91 03/15/19 10:32 90 18 161/104 90 03/15/19 10:29 90 20 99 03/15/19 10:17 89 20 181/114 88 L 03/15/19 10:14 90 18 87 L 03/15/19 10:02 92 H 18 173/110 88 L 03/15/19 09:51 88 17 153/101 89 L 03/15/19 09:45 89 153/101 90 03/15/19 09:15 95 H 161/98 94 03/15/19 09:11 97.5 F 94 H 23 H 161/98 93 Intake and Output 03/14/19 03/15/19 03/15/19 21:59 05:59 13:59 Other: Weight 113.081 kg Patient Weight 03/16/19 05:59 Weight 113.081 kg Medical - DS: Data Labs on day of discharge: Labs from last 24 hours 03/15/19 03/15/19 03/15/19 09:20 09:20 09:20 WBC 8.0 RBC 5.27 Hgb 15.7 Hct 49.2 POC Hct MCV 93.4 MCH 29.8 MCHC 31.9 RDW 16.8 H Plt Count 192 MPV 7.2 L Gran % 65.4 Lymph % (Auto) 14.0 L [place] % (Auto) 15.6 H Eos % (Auto) 4.6 Baso % (Auto) 0.4 Gran # 5.2 Lymph # (Auto) 1.1 L [place] # (Auto) 1.2 H Eos # (Auto) 0.4 Baso # (Auto) 0 POC Sodium Sodium 133 POC Potassium Potassium 5.2 H POC Chloride Chloride 89 L Carbon Dioxide 23 POC Total CO2 Anion Gap 21.0 H POC BUN BUN 59 H Creatinine 9.0 H* POC Creatinine GFR Calculation 6 Glucose 88 POC Glucose Calcium 8.1 L POC WB Ioniz Calcium Total Bilirubin 0.5 AST 22 ALT 10 Alkaline Phosphatase 109 Troponin T 0.09 H* NT-Pro-B Natriuret Pep 69267.0 H Total Protein 7.1 Albumin 4.1 Globulin 3.0 Albumin/Globulin Ratio 1.4 03/15/19 09:14 WBC RBC Hgb Hct POC Hct 51.0 MCV MCH MCHC RDW Plt Count MPV Gran % Lymph % (Auto) [place] % (Auto) Eos % (Auto) Baso % (Auto) Gran # Lymph # (Auto) [place] # (Auto) Eos # (Auto) Baso # (Auto) POC Sodium 132 L Sodium POC Potassium 5.0 Potassium POC Chloride 97 Chloride Carbon Dioxide POC Total CO2 29 Anion Gap POC BUN 74 H BUN Creatinine POC Creatinine 10.3 H* GFR Calculation Glucose POC Glucose 93 Calcium POC WB Ioniz Calcium 0.94 L Total Bilirubin AST ALT Alkaline Phosphatase Troponin T NT-Pro-B Natriuret Pep Total Protein Albumin Globulin Albumin/Globulin Ratio Medical - DS: A/P - Patient/Caregiver Discharge Instructions Activity: increase activity as tolerated Diet: Renal - Follow up Plan Follow up with: Jaylon Cutler MD [Primary Care Provider] - Disposition: Home, Self-Care Prognosis: Fair Rehab Potential: Fair Overall status at discharge: patient is back to baseline
[2019-03-15] MEDS ORDERED: hydrALAZINE 20 MG/ML VIAL IV PRN (13:35)
[2019-03-15] MEDS ORDERED: ACETAMINOPHEN 325 MG TABLET PO PRN (13:35)
[2019-03-15] MEDS ORDERED: LABETALOL 5 MG/ML ML IV PRN (13:35)
[2019-03-15] MEDS ORDERED: ONDANSETRON 4 MG/2 ML VIAL IV PRN (13:35)
[2019-03-15] MEDS ORDERED: IPRATROPIUM/ALBUTEROL 3 ML AMPUL.NEB NEB PRN (13:35)
[2019-03-15] MEDS ORDERED: LACTULOSE 20 GM/30 ML ORAL.SOL PO PRN (13:35)
[2019-03-15] MEDS ORDERED: POLYETHYLENE GLYCOL 3350 17 GM PACKET PO PRN (13:35)
[2019-03-15] MEDS ORDERED: hydrALAZINE 20 MG/ML VIAL ONE (13:39)
[2019-03-15] MEDS: 0.9 % SODIUM CHLORIDE 10 ML SYRINGE IV SCH ×2 (13:41→20:43)
--- NOTE | 2019-03-15 14:15 | XRay Report ---
HISTORY: Short of breath FINDINGS: The heart is moderately enlarged. Pulmonary veins are mildly engorged. There is no pulmonary edema, pneumonia or pleural effusion. The right diaphragm is mildly elevated. IMPRESSION: Stable cardiomegaly and borderline pulmonary venous congestion Interpreted and Authenticated by: Cisco Murphy 03/15/19
[2019-03-15] MEDS: oxyCODONE/APAP 5/325MG TABLET PO PRN (15:27)
[2019-03-15] MEDS: CARVEDILOL 12.5 MG TABLET PO SCH ×2 (15:30→20:43)
[2019-03-15] MEDS: CALCIUM ACETATE 667 MG CAPSULE PO SCH (20:42)
[2019-03-15] MEDS: HEPARIN 5,000 UNIT/ML VIAL SQ SCH ×2 (20:42→20:59)
[2019-03-15] MEDS: DOCUSATE SODIUM 100 MG CAPSULE PO SCH (20:43)
[2019-03-15] MEDS ORDERED: SENNOSIDES 1 TABLET PO PRN (21:00)
[2019-03-15] MEDS: MUPIROCIN OINT 2% 22GM NARES SCH (21:07)
[2019-03-16] MEDS: CARVEDILOL 12.5 MG TABLET PO SCH (02:08)
[2019-03-16] MEDS: 0.9 % SODIUM CHLORIDE 10 ML SYRINGE IV SCH (05:15)
[2019-03-16] MEDS: oxyCODONE/APAP 5/325MG TABLET PO PRN (07:46)
[2019-03-16] MEDS: CALCIUM ACETATE 667 MG CAPSULE PO SCH (07:47)
[2019-03-16] MEDS: DOCUSATE SODIUM 100 MG CAPSULE PO SCH (07:47)
[2019-03-16] MEDS: HEPARIN 5,000 UNIT/ML VIAL SQ SCH (07:47)
[2019-03-16] MEDS: MUPIROCIN OINT 2% 22GM NARES SCH (07:54)
[2019-03-16 08:14] LABS: ALT/SGPT 11 U/l (0-40); AST/SGOT 16 U/l (0-37); Albumin/Globulin Ratio 1.4 (1.0-2.3); Alkaline Phosphatase 115 U/L (39-117); Bilirubin,Direct < 0.2 mg/dL (0.0-0.3); Bilirubin,Total 0.5 mg/dL (0.0-1.0); Blood Urea Nitrogen 50 mg/dl (6-20); Calcium 8.4 mg/dl (8.6-10.4); Carbon Dioxide 23 mmol/L (22-30); Chloride 93 mmol/L (96-108); Globulin 2.9 gm/dL (2.2-3.7); Glomerular Filtration Rate 7; Glucose 90 mg/dL (70-105); Lactate Dehydrogenase 292 U/L (94-250); Phosphorous 3.8 mg/dL (2.7-4.5); Triglycerides 143 mg/dl (<150)
[2019-03-16] MEDS ORDERED: CARVEDILOL 12.5 MG TABLET PO SCH (09:00)
== END 2019-03-16 09:15 | disposition home or self-care (01) ==
LOC: ICU 09:09 → ED 09:09 → ICU 13:21
PROVIDERS: ADMIT Internal Medicine; ATTEND Internal Medicine

== ENCOUNTER 2019-07-01 16:16 | Inpatient (IN) ==
[2019-07-01] MEDS ORDERED: ONDANSETRON 4 MG/2 ML VIAL IV ONE (16:37)
--- NOTE | 2019-07-01 16:40 | Emergency Department Note ---
Abdominal Pain HPI - General Chief Complaint: Abdominal Pain Stated Complaint: right upper quadrant pain, constipation Time Seen by Provider: 07/01/19 16:26 Source: patient Mode of arrival: ambulatory Limitations: no limitations - History of Present Illness HPI Narrative: This patient had the onset of right upper quadrant pain after his dialysis run this morning. Pain radiates through to the back. Has associated nausea. He says a year ago he had a ultrasound at [facility] that showed gallbladder disease but he did not have his gallbladder removed. - Related Data Home Medications Medication Instructions Recorded Confirmed Calcium Acetate [Phoslo] 2,001 mg PO TIDCC 03/14/15 07/01/19 Nulecit 62.5 mg IV WEEKLY 03/14/15 07/01/19 Nutritional Supplement [Novasource 237 ml PO WEEKLY 03/14/15 07/01/19 Renal] Carvedilol [Coreg] 50 mg PO QAM 03/26/16 07/01/19 Carvedilol [Coreg] 25 mg PO QHS 03/15/19 07/01/19 Minoxidil 20 mg PO HS 07/01/19 07/01/19 Previous Rx's Medication Instructions Recorded metronidazole 0.75 % topical cream 1 applic TOPICAL BID #45 g 10/19/16 Allergies Allergy/AdvReac Type Severity Reaction Status Date / Time Penicillins [PENICILLINS] Allergy Severe RASH, STOP Verified 07/01/19 16:19 BREATHING, AMOXICILLIN IS OK, KEFLEX OK lisinopril [LISINOPRIL] Allergy Intermediate SHUTS DOWN Verified 07/01/19 16:19 KIDNEYS ketamine [KETAMINE] AdvReac Mild IRRATIONAL, Verified 07/01/19 16:19 EXCITABILITY, PSYCHOSIS tramadol [TRAMADOL] AdvReac Mild NAUSEA Verified 07/01/19 16:19 VOMITING latex AdvReac Unknown Unknown Verified 07/01/19 16:19 Review of Systems All systems ED: reviewed and negative except as stated. Abdominal Pain PMH - Past Medical History [facility] Narrative: Medical History (Last Reviewed 11/02/16 @ 14:23 by Teresa Hewitt DO) Amyloidosis (Suspected) Hand arthropathy (Acute) Rash and nonspecific skin eruption (Chronic) Light cigarette smoker (1-9 cigarettes per day) (Chronic) Marijuana use (Chronic) Chewing tobacco use (Chronic) Polycystic kidney disease (Chronic ~1985) AV fistula (Chronic) Vitamin D deficiency (Chronic) Tobacco abuse (Chronic) Renal osteodystrophy (Chronic) Prostate infection (Chronic) Obesity (Chronic) Lumbar disc disease (Chronic) Hyperlipidemia (Chronic) Low back pain (Chronic) Hypertension, essential (Chronic) Hearing loss (Chronic) Electrolyte and fluid disorders not elsewhere classified (Chronic) Chronic kidney disease, stage V (Chronic) Bladder disorder (Chronic) Hematuria (Acute) Lower extremity edema (Acute) Abscess of skin (Acute) Headache (Acute) Anxiety disorder (Resolved) Idiopathic hypersomnia with long sleep time (Resolved) Nonspecific finding on examination of urine (Resolved) Stress reaction, acute (Resolved) Past Surgical History (Last Reviewed 11/02/16 @ 14:23 by Teresa Hewitt DO) History of surgery (Chronic ~04/2011) Family History (Last Reviewed 11/02/16 @ 14:23 by Teresa Hewitt DO) Mother Arthritis Breast cancer Diabetes Cancer of intestinal tract Father Hypertension, essential Polycystic kidney, autosomal dominant Family/Other Polycystic kidney, autosomal dominant Polycystic kidney disease Family/Other Polycystic kidney disease Medical history: Reports: CAD (coronary artery disease), CHF, hypertension, renal disease, other Family history: Reports: other (polycystic kidney disease) - Social History Smoking status: Former smoker Alcohol use: Reports: Rarely Drug use: Reports: none Physical Exam Limitations: no limitations General appearance: alert Head: atraumatic Eye: Present: normal appearance ENT: Present: normal exam Neck: Present: normal inspection Chest: Present: normal inspection Respiratory: Present: normal lung sounds bilaterally Cardiovascular: Present: regular rate, normal rhythm, normal heart sounds Abdominal: Present: soft, distention, tenderness. Absent: guarding, rebound Abdominal tenderness: Present: RUQ, moderate Neurological: Present: alert Psychiatric: Present: normal affect Skin: Present: warm, dry Course Vital Signs Temperature 97.5 F 07/01/19 16:16 Pulse Rate 88 07/01/19 16:16 Respiratory Rate 18 07/01/19 16:16 Blood Pressure 106/71 07/01/19 16:16 Pulse Oximetry (%) 98 07/01/19 16:16 Temperature 97.5 F 07/01/19 16:16 Pulse Rate 100 H 07/01/19 18:58 Respiratory Rate 18 07/01/19 16:16 Blood Pressure 140/94 07/01/19 18:54 Pulse Oximetry (%) 91 07/01/19 18:58 Abdominal Pain - MDM Narrative Medical decision making narrative: Patient's ultrasound shows evidence of cholecystitis without choledocholithiasis. Discussed case with Dr. He Mcguire and Dr. Alvarado and the patient will be admitted to the hospital for surgery tomorrow. - Lab Data Lab results reviewed: Yes I reviewed the patient's lab results. Result diagrams: 07/01/19 16:43 07/01/19 16:42 Lab Results 07/01/19 07/01/19 07/01/19 Range/Units 16:42 16:42 16:43 WBC 6.4 (4.50-11.00) K/mcL RBC 6.00 (4.63-6.08) M/mcL Hgb 17.8 H (13.7-17.5) g/dL Hct 56.3 H (40.1-51.0) % MCV 93.8 (80.0-100.0) fL MCH 29.7 (26.0-34.0) pg MCHC 31.6 (31.0-36.0) g/dL RDW 18.6 H (11.5-14.5) % Plt Count 151 (140-440) K/mcL MPV 9.4 (7.4-10.4) fL Gran % 69.6 (38.0-78.0) % Lymph % (Auto) 8.6 L (15.5-49.0) % [place] % (Auto) 16.8 H (1.0-12.0) % Eos % (Auto) 4.4 (0.0-7.0) % Baso % (Auto) 0.6 (0.0-2.0) % Gran # 4.46 (1.80-8.00) K/mcL Lymph # (Auto) 0.55 L (1.50-4.80) K/mcL [place] # (Auto) 1.08 H (0.10-0.90) K/mcL Eos # (Auto) 0.28 (0.00-0.70) K/mcL Baso # (Auto) 0.04 (0.00-0.30) K/mcL Sodium 138 (133-145) mmol/L Potassium 5.0 (3.3-5.1) mmol/L Chloride 92 L (96-108) mmol/L Carbon Dioxide 27 (22-30) mmol/L Anion Gap 19.0 H (8-16) BUN 43 H (6-20) mg/dl Creatinine 7.3 H* (0.7-1.2) mg/dl GFR Calculation 8 Glucose 112 H (70-105) mg/dL Calcium 8.2 L (8.6-10.4) mg/dl Total Bilirubin 1.3 H (0.0-1.0) mg/dL AST 111 H (0-37) U/l ALT 71 H (0-40) U/l Alkaline Phosphatase 219 H (39-117) U/L NT-Pro-B Natriuret Pep 01912.0 H (0-125) pg/ml Total Protein 7.5 (5.9-8.4) gm/dL Albumin 4.2 (3.2-5.2) gm/dL Globulin 3.3 (2.2-3.7) gm/dL Albumin/Globulin Ratio 1.3 (1.0-2.3) Lipase 20 (7-60) U/L - Radiology Data Radiology results reviewed: Yes I reviewed the patient's radiology results. Disposition Pt seen by HEALTH SUPPORT SPECIALIST/PA only: No Clinical Impression: Cholecystitis Disposition: Xfer As Inpt ([facility]) Condition: Good Referrals: Jaylon Cutler MD [Primary Care Provider] - Time of Disposition: 19:41
[2019-07-01] MEDS ORDERED: HYDROmorphone 2 MG/ML VIAL IV SCH (16:45)
[2019-07-01] MEDS ORDERED: LACTATED RINGERS 1,000 ML IV ONE (16:48)
[2019-07-01 17:23] LABS: Basophils # (Auto) 0.04 K/mcL (0.00-0.30); Basophils % (Auto) 0.6 % (0.0-2.0); Eosinophils # (Auto) 0.28 K/mcL (0.00-0.70); Eosinophils % (Auto) 4.4 % (0.0-7.0); Granulocytes % (Auto) 69.6 % (38.0-78.0); Hematocrit 56.3 % (40.1-51.0); Hemoglobin 17.8 g/dL (13.7-17.5); Lymphocytes # (Auto) 0.55 K/mcL (1.50-4.80); Lymphocytes % (Auto) 8.6 % (15.5-49.0); Mean Cell Volume 93.8 fL (80.0-100.0); Mean Corpuscular HGB Conc 31.6 g/dL (31.0-36.0); Mean Platelet Volume 9.4 fL (7.4-10.4); Monocytes # (Auto) 1.08 K/mcL (0.10-0.90); Monocytes % (Auto) 16.8 % (1.0-12.0); Platelet Count 151 K/mcL (140-440); Red Cell Distribution Width 18.6 % (11.5-14.5); WBC 6.4 K/mcL (4.50-11.00)
[2019-07-01 17:54] LABS: ALT/SGPT 71 U/l (0-40); AST/SGOT 111 U/l (0-37); Albumin 4.2 gm/dL (3.2-5.2); Albumin/Globulin Ratio 1.3 (1.0-2.3); Alkaline Phosphatase 219 U/L (39-117); Bilirubin,Total 1.3 mg/dL (0.0-1.0); Blood Urea Nitrogen 43 mg/dl (6-20); Calcium 8.2 mg/dl (8.6-10.4); Carbon Dioxide 27 mmol/L (22-30); Globulin 3.3 gm/dL (2.2-3.7); Glucose 112 mg/dL (70-105)
[2019-07-01 17:58] LABS: Chloride 92 mmol/L (96-108); Glomerular Filtration Rate 8
[2019-07-01] MEDS ORDERED: metroNIDAZOLE 500 MG/100 ML BAG IV ONE (18:36)
[2019-07-01] MEDS ORDERED: LEVOFLOXACIN 750 MG/150 ML BAG IV ONE ×2 (18:36→20:09)
--- NOTE | 2019-07-01 19:04 | Ultrasound Report ---
CLINICAL INFORMATION: RUQ Pain COMPARISON: Abdomen CT 12/14/2016 FINDINGS: There are scattered cysts and small echogenic foci throughout the liver which are unchanged from prior exam. No solid lesions. Liver is normal in size. The gallbladder is distended with moderate debris. Gallbladder wall normal thickness but there is focal tenderness over the gallbladder. Common bile duct is dilated at 16 mm. IMPRESSION: Moderate gallbladder distention and marked dilatation of the common bile ducts. The possibility of pancreatic or ampullary carcinoma or stones obstructing the distal common bile duct should be entertained. There are also multiple hyperechoic foci in the liver along with cysts requiring evaluation. Suggest abdominal MRI/MRCP Interpreted and Authenticated by: Umberto Rocha 07/01/19
--- NOTE | 2019-07-01 19:31 | Internal Med History&Physical ---
Medical - H&P: HPI Patient information: Note initiated : 07/01/19 at 7:25 pm Service Date, if different from initiated Date: [] Patient: Blake Camacho 48 y/o M admitted on for right upper quadrant pain, constipation. Chief Complaint: [] Chief complaint: abd pain History of present illness: Mr. 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 Cutler. Patient also carries a history of congestive heart failure but has a stress test done in April at [facility] with apical wall motion abnormality. Patient otherwise has been doing well with ongoing hemodialysis. Today he woke up fine and went to hemodialysis and had a hamburger for lunch jyoti rtly thereafter start experiencing epigastric/right upper abdominal pain. Described as 6 out of 10 to 8 out of 10 with no radiation cramping associated nausea but no fever chills. Patient presents to the ER for evaluation. Initial work-up was consistent with acute cholecystitis. Surgery was consulted. Given history of end-stage renal disease on hemodialysis/history of congestive heart failure hospital service was requested for admission while patient will undergo cholecystectomy in a.m. At the time evaluation patient is alert and oriented. He was able to answer most of the questions and endorsed to history as above. He denies fever shaking chills, jaundice, prior similar episode except for a year ago which self resolved. He lives with his friends at [place]. He quit smoking 6 months ago and quit chewing 3 months ago. Denies alcoholism Review of systems A 10 point review system was performed and is negative except for ones cussed above Medical - H&P: PMH Medical history: Amyloidosis (Suspected) Hand arthropathy (Acute) Rash and nonspecific skin eruption (Chronic) Light cigarette smoker (1-9 cigarettes per day) (Chronic) Marijuana use (Chronic) Chewing tobacco use (Chronic) Polycystic kidney disease (Chronic ~1985) AV fistula (Chronic) Vitamin D deficiency (Chronic) Tobacco abuse (Chronic) Renal osteodystrophy (Chronic) Prostate infection (Chronic) Obesity (Chronic) Lumbar disc disease (Chronic) Hyperlipidemia (Chronic) Low back pain (Chronic) Hypertension, essential (Chronic) Hearing loss (Chronic) Electrolyte and fluid disorders not elsewhere classified (Chronic) Chronic kidney disease, stage V (Chronic) Bladder disorder (Chronic) Hematuria (Acute) Lower extremity edema (Acute) Abscess of skin (Acute) Headache (Acute) Anxiety disorder (Resolved) Idiopathic hypersomnia with long sleep time (Resolved) Nonspecific finding on examination of urine (Resolved) Stress reaction, acute (Resolved) Surgical history: Past Surgical History History of surgery (Chronic ~04/2011) Pertinent family history: Family History Mother Arthritis Breast cancer Diabetes Cancer of intestinal tract Father Hypertension, essential Polycystic kidney, autosomal dominant Family/Other Polycystic kidney, autosomal dominant Polycystic kidney disease Family/Other Polycystic kidney disease Medical - H&P: Meds Home Medications Medication Instructions Recorded Confirmed Type Calcium Acetate [Phoslo] 2,001 mg PO TIDCC 03/14/15 03/15/19 History Nulecit 62.5 mg IV WEEKLY 03/14/15 03/15/19 History Nutritional Supplement [Novasource 237 ml PO WEEKLY 03/14/15 03/15/19 History Renal] Carvedilol [Coreg] 50 mg PO QAM 03/26/16 03/15/19 History metronidazole 0.75 % topical cream 1 applic TOPICAL BID #45 g 10/19/16 03/15/19 Rx Carvedilol [Coreg] 25 mg PO QHS 03/15/19 03/15/19 History Minoxidil 20 mg PO HS 07/01/19 07/01/19 History Allergies Allergy/AdvReac Type Severity Reaction Status Date / Time Penicillins [PENICILLINS] Allergy Severe RASH, STOP Verified 07/01/19 16:19 BREATHING, AMOXICILLIN IS OK, KEFLEX OK lisinopril [LISINOPRIL] Allergy Intermediate SHUTS DOWN Verified 07/01/19 16:19 KIDNEYS ketamine [KETAMINE] AdvReac Mild IRRATIONAL, Verified 07/01/19 16:19 EXCITABILITY, PSYCHOSIS tramadol [TRAMADOL] AdvReac Mild NAUSEA Verified 07/01/19 16:19 VOMITING latex AdvReac Unknown Unknown Verified 07/01/19 16:19 Medical - H&P: Exam - Constitutional Vitals: Temp Pulse Resp BP Pulse Ox 97.5 F 100 H 18 140/94 91 07/01/19 16:16 07/01/19 18:58 07/01/19 16:16 07/01/19 18:54 07/01/19 18:58 General appearance: morbidly obese Exam: Alert and oriented Head normocephalic Multiple facial acneform lesions Eye movement symmetrical No ear nose discharge Oral cavity dry Neck lymphadenopathy S1-S2 regular rhythm ESM grade 1 Diminished breath sounds bases Right upper quadrant tenderness with no rebound Lower extremity no cyanosis clubbing no joint swelling Skin no suspicious lesion Psych alert cooperative Neuro nonfocal Medical - H&P: Reslt - Labs CBC & Chem 7: 07/01/19 16:43 07/01/19 16:42 Labs: Short CBC 07/01/19 Range/Units 16:43 WBC 6.4 (4.50-11.00) K/mcL Hgb 17.8 H (13.7-17.5) g/dL Hct 56.3 H (40.1-51.0) % Plt Count 151 (140-440) K/mcL BMP 07/01/19 16:42 Sodium 138 Potassium 5.0 Chloride 92 L Carbon Dioxide 27 BUN 43 H Creatinine 7.3 H* Glucose 112 H Calcium 8.2 L Liver Function 07/01/19 Range/Units 16:42 Total Bilirubin 1.3 H (0.0-1.0) mg/dL AST 111 H (0-37) U/l ALT 71 H (0-40) U/l Alkaline Phosphatase 219 H (39-117) U/L Albumin 4.2 (3.2-5.2) gm/dL Medical - H&P: A/P (1) Cholecystitis Current visit: Yes Status: Acute * Acute cholecystitis confirmed on imaging. Antibiotic coverage/n.p.o. after midnight/surgical consult. * ESRD on hemodialysis continue management per nephrology * Preoperative risk evaluation- Based on [employer] [place] heart [employer] risk stratification patient would categorically fall under high risk morbidity due to surgery specific risk, underlying obesity with BMI over 30, history of CHF and ESRD on hemodialysis. However patient has a fair functional baseline. Risk may include intraoperative and immediate postoperative ACS/CVA, however there are no modifiable risk factors at present. I recommend maintaining a map greater than 70 during intraoperative phase and use of capnometry and IS to minimize pulmonary compilations. Additionally surgery and anesthesia specific risks will be addressed by respective care providers during their preoperative evaluations. Patient expresses understanding of above risks going into surgery. We await cardiac work-up from [facility] * History of CHF continue Coreg. Patient was evaluated at [facility] in April with negative stress test. Patient was told about wall motion abnormality. Await records from [facility] * History of hypertension we will continue home dose Coreg * History tobacco dependence quit 6 months ago * Obesity hypoventilation syndrome-patient was prescribed CPAP but not using it * History of COPD non-oxygen dependent on bronchodilators * Full code * Prophylaxis we will start heparin post surgery Plan * Inpatient admission * Surgery nephrology consult * N.p.o. after midnight * No modifiable risk factor at this time. Continue prior home medications * Obtain previous cardiac work-up from [facility] * Recommend postoperative capnometry/incentive spirometer use/CPAP at night
[2019-07-01] MEDS ORDERED: ONDANSETRON 4 MG/2 ML VIAL IV PRN (20:09)
[2019-07-01] MEDS ORDERED: HYDROmorphone 2 MG/ML VIAL IV PRN (20:09)
[2019-07-01] MEDS ORDERED: POLYETHYLENE GLYCOL 3350 17 GM PACKET PO PRN (20:09)
[2019-07-01] MEDS ORDERED: ACETAMINOPHEN 650 MG/65 ML BOTTLE IV PRN (20:09)
[2019-07-01] MEDS ORDERED: MELATONIN 3 MG TABLET PO PRN (20:09)
[2019-07-01] MEDS ORDERED: ACETAMINOPHEN 325 MG TABLET PO PRN (20:09)
[2019-07-01] MEDS ORDERED: BISACODYL 10 MG SUPP.RECT PR PRN (20:09)
[2019-07-01] MEDS: DOCUSATE SODIUM 100 MG CAPSULE PO SCH (22:52)
[2019-07-01] MEDS: 0.9 % SODIUM CHLORIDE 10 ML SYRINGE IV SCH (22:52)
[2019-07-02] MEDS: metroNIDAZOLE 500 MG/100 ML BAG IV SCH ×4 (03:30→22:13)
--- NOTE | 2019-07-02 03:31 | XRay Report ---
CLINICAL INFORMATION: Preop COMPARISON: 03/15/2019 FINDINGS: Mild cardiomegaly is unchanged. Mediastinum and pulmonary vessels are normal. Lungs are clear. No effusions. IMPRESSION: Mild stable cardiomegaly. Acute disease Interpreted and Authenticated by: Umberto Rocha 07/02/19
[2019-07-02] MEDS: 0.9 % SODIUM CHLORIDE 10 ML SYRINGE IV SCH ×3 (05:34→22:13)
[2019-07-02] MEDS ORDERED: IPRATROPIUM/ALBUTEROL 3 ML AMPUL.NEB NEB PRN (06:05)
[2019-07-02 06:32] LABS: Hematocrit 54.3 % (40.1-51.0); Hemoglobin 17.2 g/dL (13.7-17.5); Mean Cell Volume 93.3 fL (80.0-100.0); Mean Corpuscular HGB Conc 31.7 g/dL (31.0-36.0); Mean Platelet Volume 9.7 fL (7.4-10.4); Platelet Count 147 K/mcL (140-440); RBC 5.82 M/mcL (4.63-6.08); Red Cell Distribution Width 18.5 % (11.5-14.5); WBC 5.8 K/mcL (4.50-11.00)
[2019-07-02 06:46] LABS: INR 1.1 (0.9-1.1); Prothrombin Time 14.3 sec (11.9-14.5)
[2019-07-02 07:01] LABS: ALT/SGPT 102 U/l (0-40); AST/SGOT 80 U/l (0-37); Albumin 3.9 gm/dL (3.2-5.2); Albumin/Globulin Ratio 1.3 (1.0-2.3); Alkaline Phosphatase 220 U/L (39-117); Bilirubin,Direct < 0.2 mg/dL (0.0-0.3); Bilirubin,Total 0.5 mg/dL (0.0-1.0); Blood Urea Nitrogen 51 mg/dl (6-20); Calcium 7.7 mg/dl (8.6-10.4); Carbon Dioxide 23 mmol/L (22-30); Globulin 3.1 gm/dL (2.2-3.7); Glucose 81 mg/dL (70-105); Lactate Dehydrogenase 313 U/L (94-250); Triglycerides 85 mg/dl (<150); Uric Acid 5.8 mg/dL (2.5-8.0)
[2019-07-02 07:31] LABS: Chloride 94 mmol/L (96-108); Glomerular Filtration Rate 6; Phosphorous 7.7 mg/dL (2.7-4.5)
[2019-07-02 07:41] LABS: Anisocytosis 1+ (NONE SEEN); Eosinophils % (Manual) 4 % (0-7); Lymphocytes % 17 % (15-49); Monocytes % (Manual) 21 % (1-12); Platelet Estimate NORMAL (NORMAL); RBC Morphology ABNORM (NORMAL); Reactive Lymphocytes 6 % (0-2); Segmented Neutrophils % 52 % (38-78)
[2019-07-02] MEDS: DOCUSATE SODIUM 100 MG CAPSULE PO SCH ×2 (08:23→20:46)
[2019-07-02] MEDS ORDERED: SODIUM FERRIC GLUCONATE COMPLEX IV SCH (10:00)
[2019-07-02] MEDS: CARVEDILOL 12.5 MG TABLET PO SCH (10:37)
[2019-07-02] MEDS: CALCIUM ACETATE 667 MG CAPSULE PO SCH ×2 (13:09→20:46)
[2019-07-02] MEDS ORDERED: LORazepam 2 MG/ML VIAL IV ONE ×2 (17:22→17:55)
--- NOTE | 2019-07-02 17:25 | General Surgery Consult Note ---
History of Present Illness Patient information: Note initiated : 07/02/19 at 5:22 pm Service Date, if different from initiated Date: [] Patient: Blake Camacho 48 y/o M admitted on 07/01/19 for right upper quadrant pain, constipation. Chief Complaint: [] Reason for consult: abdominal pain Medications and Allergies Home Medications Medication Instructions Recorded Confirmed Type Nulecit 62.5 mg IV WEEKLY 03/14/15 07/02/19 History RX: Calcium Acetate [Phoslo] 2,001 mg PO TIDCC 03/14/15 07/02/19 History RX: Nutritional Supplement 237 ml PO WEEKLY 03/14/15 07/02/19 History [Novasource Renal] RX: Carvedilol [Coreg] 50 mg PO QAM 03/26/16 07/02/19 History metronidazole 0.75 % topical cream 1 applic TOPICAL BID #45 g 10/19/16 07/02/19 Rx Carvedilol [Coreg] 25 mg PO QHS 03/15/19 07/02/19 History Minoxidil 20 mg PO HS 07/01/19 07/02/19 History Allergies Allergy/AdvReac Type Severity Reaction Status Date / Time Penicillins [PENICILLINS] Allergy Severe Difficulty Verified 07/02/19 08:08 Breathing lisinopril [LISINOPRIL] AdvReac Intermediate SHUTS DOWN Verified 07/02/19 08:08 KIDNEYS ketamine [KETAMINE] AdvReac Mild IRRATIONAL, Verified 07/01/19 16:19 EXCITABILITY, PSYCHOSIS tramadol [TRAMADOL] AdvReac Mild Nausea Verified 07/02/19 08:08 latex AdvReac Unknown Unknown Verified 07/01/19 16:19 Exam Temp Pulse Resp BP Pulse Ox 97.8 F 101 H 22 130/95 91 07/02/19 16:00 07/02/19 16:00 07/02/19 16:00 07/02/19 16:00 07/02/19 16:00 Results - Labs 07/02/19 05:25 07/02/19 05:25 Abnormal lab results 07/01/19 07/01/19 07/01/19 Range/Units 16:42 16:42 16:43 Hgb 17.8 H (13.7-17.5) g/dL Hct 56.3 H (40.1-51.0) % RDW 18.6 H (11.5-14.5) % Lymph % (Auto) 8.6 L (15.5-49.0) % [place] % (Auto) 16.8 H (1.0-12.0) % Lymph # (Auto) 0.55 L (1.50-4.80) K/mcL [place] # (Auto) 1.08 H (0.10-0.90) K/mcL Monocytes % (Manual) (1-12) % Reactive Lymphocytes (0-2) % RBC Morphology (NORMAL) Anisocytosis (NONE SEEN) Potassium (3.3-5.1) mmol/L Chloride 92 L (96-108) mmol/L Anion Gap 19.0 H (8-16) BUN 43 H (6-20) mg/dl Creatinine 7.3 H* (0.7-1.2) mg/dl Glucose 112 H (70-105) mg/dL Calcium 8.2 L (8.6-10.4) mg/dl Phosphorus (2.7-4.5) mg/dL Total Bilirubin 1.3 H (0.0-1.0) mg/dL GGT (8-61) U/L AST 111 H (0-37) U/l ALT 71 H (0-40) U/l Alkaline Phosphatase 219 H (39-117) U/L Lactate Dehydrogenase (94-250) U/L NT-Pro-B Natriuret Pep 60525.0 H (0-125) pg/ml 07/02/19 07/02/19 Range/Units 05:25 05:25 Hgb (13.7-17.5) g/dL Hct 54.3 H (40.1-51.0) % RDW 18.5 H (11.5-14.5) % Lymph % (Auto) (15.5-49.0) % [place] % (Auto) (1.0-12.0) % Lymph # (Auto) (1.50-4.80) K/mcL [place] # (Auto) (0.10-0.90) K/mcL Monocytes % (Manual) 21 H (1-12) % Reactive Lymphocytes 6 H (0-2) % RBC Morphology Abnorm A (NORMAL) Anisocytosis 1+ A (NONE SEEN) Potassium 5.5 H (3.3-5.1) mmol/L Chloride 94 L (96-108) mmol/L Anion Gap 18.0 H (8-16) BUN 51 H (6-20) mg/dl Creatinine 8.8 H* (0.7-1.2) mg/dl Glucose (70-105) mg/dL Calcium 7.7 L (8.6-10.4) mg/dl Phosphorus 7.7 H* (2.7-4.5) mg/dL Total Bilirubin (0.0-1.0) mg/dL GGT 278 H (8-61) U/L AST 80 H (0-37) U/l ALT 102 H (0-40) U/l Alkaline Phosphatase 220 H (39-117) U/L Lactate Dehydrogenase 313 H (94-250) U/L NT-Pro-B Natriuret Pep (0-125) pg/ml Diabetes panel 07/01/19 07/02/19 Range/Units 16:42 05:25 Sodium 138 135 (133-145) mmol/L Potassium 5.0 5.5 H (3.3-5.1) mmol/L Chloride 92 L 94 L (96-108) mmol/L Carbon Dioxide 27 23 (22-30) mmol/L BUN 43 H 51 H (6-20) mg/dl Creatinine 7.3 H* 8.8 H* (0.7-1.2) mg/dl Glucose 112 H 81 (70-105) mg/dL Calcium 8.2 L 7.7 L (8.6-10.4) mg/dl AST 111 H 80 H (0-37) U/l ALT 71 H 102 H (0-40) U/l Alkaline Phosphatase 219 H 220 H (39-117) U/L Total Protein 7.5 7.0 (5.9-8.4) gm/dL Albumin 4.2 3.9 (3.2-5.2) gm/dL Triglycerides 85 (<150) mg/dl Calcium panel 07/01/19 07/02/19 Range/Units 16:42 05:25 Calcium 8.2 L 7.7 L (8.6-10.4) mg/dl Phosphorus 7.7 H* (2.7-4.5) mg/dL Albumin 4.2 3.9 (3.2-5.2) gm/dL Pituitary panel 07/01/19 07/02/19 Range/Units 16:42 05:25 Sodium 138 135 (133-145) mmol/L Potassium 5.0 5.5 H (3.3-5.1) mmol/L Chloride 92 L 94 L (96-108) mmol/L Carbon Dioxide 27 23 (22-30) mmol/L BUN 43 H 51 H (6-20) mg/dl Creatinine 7.3 H* 8.8 H* (0.7-1.2) mg/dl Glucose 112 H 81 (70-105) mg/dL Calcium 8.2 L 7.7 L (8.6-10.4) mg/dl Adrenal panel 07/01/19 07/02/19 Range/Units 16:42 05:25 Sodium 138 135 (133-145) mmol/L Potassium 5.0 5.5 H (3.3-5.1) mmol/L Chloride 92 L 94 L (96-108) mmol/L Carbon Dioxide 27 23 (22-30) mmol/L BUN 43 H 51 H (6-20) mg/dl Creatinine 7.3 H* 8.8 H* (0.7-1.2) mg/dl Glucose 112 H 81 (70-105) mg/dL Calcium 8.2 L 7.7 L (8.6-10.4) mg/dl Total Bilirubin 1.3 H 0.5 (0.0-1.0) mg/dL AST 111 H 80 H (0-37) U/l ALT 71 H 102 H (0-40) U/l Alkaline Phosphatase 219 H 220 H (39-117) U/L Total Protein 7.5 7.0 (5.9-8.4) gm/dL Albumin 4.2 3.9 (3.2-5.2) gm/dL All other labs normal. Assessment and Plan (1) Abdominal pain Status: Acute (2) Dilated cbd, acquired schedule for mrcp prior to consideration for cholecystectomy will need dialysis prior to and after surgery Status: Acute
[2019-07-02] MEDS ORDERED: PROMETHAZINE 25 MG/ML VIAL IM PRN (17:51)
[2019-07-02] MEDS ORDERED: PROMETHAZINE 25 MG/ML VIAL ONE (17:53)
[2019-07-02] MEDS ORDERED: PROMETHAZINE 25 MG/ML VIAL IV ONE (18:14)
[2019-07-02] MEDS: METRONIDAZOLE TOPICAL SCH (20:53)
[2019-07-02] MEDS ORDERED: CARVEDILOL 12.5 MG TABLET PO SCH (21:00)
[2019-07-02] MEDS ORDERED: MINOXIDIL 10 MG TABLET PO SCH (21:00)
[2019-07-03] MEDS: 0.9 % SODIUM CHLORIDE 10 ML SYRINGE IV SCH (05:30)
[2019-07-03] MEDS: metroNIDAZOLE 500 MG/100 ML BAG IV SCH (05:30)
--- NOTE | 2019-07-03 06:07 | Magnetic Resonance Report ---
CLINICAL INFORMATION: Gallbladder distention and common bile duct dilatation COMPARISON: None. TECHNIQUE: MRCP was performed using 3D FRFSE respiratory triggered and single-shot FSE thick slab technique. Axial T2 SSFSE and coronal SSFSE images were obtained through the upper abdomen as well. FINDINGS: Exam is severely limited due to motion artifact and also susceptibility artifact created from APKD. There are multiple small simple cysts scattered throughout the liver. No solid lesions identified. The gallbladder is not well evaluated but appears grossly normal. The common bile duct is mildly dilated at 12 mm. No definite stone appreciated within the distal common bile duct although visualization is limited. Pancreas grossly normal. Massive enlargement of both kidneys due to parenchymal placement by multiple cysts appreciated. Nearly all cysts are simple, but several have low signal suggesting prior chronic hemorrhage. Pancreatic duct is not visualized. IMPRESSION: Limited exam due to extensive artifact. Common bile duct is mildly dilated at 10 mm. No stone identified however the duct is not completely seen. The possibility of a distal CBD stone is not completely excluded. In this particular case, suggest abdomen CT without contrast. Gallbladder poorly visualized, but shows no gross abnormality Multiple cysts replacing the renal parenchyma resulting in massive renal enlargement compatible with APKD. Most are simple but a few demonstrate lower signal suggesting chronic hemorrhage. Multiple simple appearing cysts within the liver. Interpreted and Authenticated by: Umberto Rocha 07/03/19
[2019-07-03 06:42] LABS: Hematocrit 55.3 % (40.1-51.0); Hemoglobin 17.4 g/dL (13.7-17.5); Mean Cell Volume 94.7 fL (80.0-100.0); Mean Corpuscular HGB Conc 31.5 g/dL (31.0-36.0); Mean Platelet Volume 10.2 fL (7.4-10.4); Platelet Count 160 K/mcL (140-440); RBC 5.84 M/mcL (4.63-6.08); Red Cell Distribution Width 18.7 % (11.5-14.5); WBC 5.9 K/mcL (4.50-11.00)
[2019-07-03 07:09] LABS: Bilirubin,Direct < 0.2 mg/dL (0.0-0.3)
[2019-07-03 07:25] LABS: Albumin 3.6 gm/dL (3.2-5.2); Albumin/Globulin Ratio 1.2 (1.0-2.3); Alkaline Phosphatase 193 U/L (39-117); Bilirubin,Total 0.4 mg/dL (0.0-1.0); Blood Urea Nitrogen 52 mg/dl (6-20); Calcium 7.9 mg/dl (8.6-10.4); Carbon Dioxide 21 mmol/L (22-30); Chloride 91 mmol/L (96-108); Globulin 3.1 gm/dL (2.2-3.7); Glomerular Filtration Rate 5; Glucose 97 mg/dL (70-105); Lactate Dehydrogenase 339 U/L (94-250); Phosphorous 7.8 mg/dL (2.7-4.5); Triglycerides 390 mg/dl (<150); Uric Acid 6.2 mg/dL (2.5-8.0)
[2019-07-03 07:27] LABS: Anisocytosis 1+ (NONE SEEN); Band Neutrophils % 6 % (0-10); Eosinophils % (Manual) 7 % (0-7); Lymphocytes % 22 % (15-49); Monocytes % (Manual) 12 % (1-12); Platelet Estimate NORMAL (NORMAL); RBC Morphology ABNORM (NORMAL); Segmented Neutrophils % 53 % (38-78); Smudge Cells 1+ (NONE SEEN)
[2019-07-03 07:28] LABS: ALT/SGPT 63 U/l (0-40); AST/SGOT < 5 U/l (0-37)
[2019-07-03] MEDS: CALCIUM ACETATE 667 MG CAPSULE PO SCH ×2 (07:50→12:18)
[2019-07-03] MEDS ORDERED: LEVOFLOXACIN 500 MG/100 ML BAG IV SCH (09:00)
--- NOTE | 2019-07-03 09:24 | Nephrology Progress Note ---
Subjective Patient information: Note initiated : 07/03/19 at 9:21 am Service Date, if different from initiated Date: [] Patient: Blake Camacho 48 y/o M admitted on 07/01/19 for right upper quadrant pain, constipation. Chief Complaint: [] Feeling better. Apetite is good. Ate all of his breakfast. Objective - Vital Signs Vital signs: Vital Signs Temp Pulse Pulse Resp BP BP BP 07/03/19 07:58 97.4 F 18 146/104 07/03/19 07:04 102 H 20 07/03/19 03:40 97.1 F 90 20 131/88 07/02/19 23:15 99.4 F H 99 H 20 112/82 07/02/19 22:20 07/02/19 20:40 07/02/19 19:15 98.9 F 103 H 24 H 133/85 07/02/19 18:55 07/02/19 18:50 93 H 07/02/19 16:00 97.8 F 101 H 22 130/95 07/02/19 12:57 80 127/107 07/02/19 12:46 100 H 118/77 07/02/19 12:35 93 H 215/99 07/02/19 12:15 80 222/108 07/02/19 12:05 74 199/120 07/02/19 11:32 80 166/100 07/02/19 11:00 89 136/89 07/02/19 10:33 100 H 126/112 07/02/19 10:00 96.9 F L 93 H 138/89 Pulse Ox 07/03/19 07:58 07/03/19 07:04 93 07/03/19 03:40 93 07/02/19 23:15 90 07/02/19 22:20 91 07/02/19 20:40 90 07/02/19 19:15 92 07/02/19 18:55 97 07/02/19 18:50 88 L 07/02/19 16:00 91 07/02/19 12:57 07/02/19 12:46 07/02/19 12:35 07/02/19 12:15 07/02/19 12:05 07/02/19 11:32 07/02/19 11:00 07/02/19 10:33 07/02/19 10:00 Intake and Output 07/02/19 07/03/19 07/03/19 21:59 05:59 13:59 Intake Total 460 1540 100 Output Total 0 0 Balance 460 1540 100 Intake: IV 100 100 100 Oral 360 1440 Output: Void Amount 0 0 Other: Meal Cream soup Cream soup Percent of Meal Consumed 100% 100% Feeding Ability Independent Independent Weight 224 lb Intake & Output: Intake & Output 07/02/19 07/03/19 07/03/19 21:59 05:59 13:59 Intake Total 460 1540 100 Output Total 0 0 Balance 460 1540 100 Weight 224 lb Intake: IV 100 100 100 Oral 360 1440 Output: Void Amount 0 0 Other: Meal Cream soup Cream soup Percent of Meal Consumed 100% 100% Feeding Ability Independent Independent - General Appearance General appearance: well-developed, well-nourished EENT: ATNC Neck: no JVD Respiratory: no kyphosis Cardiology: no murmurs Gastrointestinal: normoactive bowel sounds Integumentary: no rash Neurologic: no focal deficit Musculoskeletal: no deformities - Lab 07/03/19 05:35 07/03/19 05:35 Most recent lab results Calcium 7.9 mg/dl (8.6-10.4) L 07/03/19 05:35 Phosphorus 7.8 mg/dL (2.7-4.5) H* 07/03/19 05:35 Magnesium 2.1 mg/dL (1.6-2.5) 07/03/19 05:35 Assessment and Plan (1) Polycystic kidney disease Status: Chronic Comment: Hyperkalemia. better. Had dialysis yesterday. Being discharged today.
[2019-07-03] MEDS: METRONIDAZOLE TOPICAL SCH (09:33)
[2019-07-03] MEDS: CARVEDILOL 12.5 MG TABLET PO SCH (09:33)
[2019-07-03] MEDS: DOCUSATE SODIUM 100 MG CAPSULE PO SCH (09:33)
--- NOTE | 2019-07-03 09:43 | Internal Med Progress Note ---
Medical - PN: Subj Patient information: Note initiated : 07/02/19 at 9:40 am Service Date, if different from initiated Date: [] Patient: Blake Camacho 48 y/o M admitted on 07/01/19 for right upper quadrant pain, constipation. Chief Complaint: [] Interval history: Mr. 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 Cutler. Patient also carries a history of congestive heart failure but has a stress test done in April at [facility] with apical wall motion abnormality. Patient otherwise has been doing well with ongoing hemodialysis. Today he woke up fine and went to hemodialysis and had a hamburger for lunch shortly thereafter start experiencing epigastric/right upper abdominal pain. Described as 6 out of 10 to 8 out of 10 with no radiation cramping associated nausea but no fever chills. Patient presents to the ER for evaluation. Initial work-up was consistent with acute cholecystitis. Surgery was consulted. Given history of end-stage renal disease on hemodialysis/history of congestive heart failure hospital service was requested for admission while patient will undergo cholecystectomy in a.m. At the time evaluation patient is alert and oriented. He was able to answer most of the questions and endorsed to history as above. He denies fever shaking chills, jaundice, prior similar episode except for a year ago which self resolved. He lives with his friends at [place]. He quit smoking 6 months ago and quit chewing 3 months ago. Denies alcoholism 07/02-patient doing well. Abdominal pain improved. On antibiotic coverage. MRCP today. Surgery on board. Ongoing hemodialysis. Slightly short of breath but hemodynamically stable. No overnight fever chills nausea vomiting or concerns per staff. Ongoing treatment for pre-existing medical issues - Constitutional Vitals: Vital Signs Temp Pulse Resp BP Pulse Ox 97.4 F 81 16 146/104 88 L 07/03/19 07:58 07/03/19 09:23 07/03/19 09:23 07/03/19 07:58 07/03/19 09:23 Period Temp Pulse Resp BP Sys/Lyles Pulse Ox Last 24 Hr 96.9 F-99.4 F 74-103 16-24 112-222/77-120 88-97 Intake and Output 07/02/19 07/03/19 07/03/19 21:59 05:59 13:59 Intake Total 460 1540 100 Output Total 0 0 Balance 460 1540 100 Weight 224 lb Intake & Output: Intake & Output 07/02/19 07/03/19 07/03/19 21:59 05:59 13:59 Intake Total 460 1540 100 Output Total 0 0 Balance 460 1540 100 Weight 224 lb Intake: IV 100 100 100 Oral 360 1440 Output: Void Amount 0 0 Other: Meal Cream soup Cream soup Percent of Meal Consumed 100% 100% Feeding Ability Independent Independent General appearance: no acute distress Exam: Minimally short of breath No abdominal discomfort Alert and anxious Await surgical evaluation Morbidly obese Medical - PN: Obj Da - Labs CBC & Chem 7: 07/03/19 05:35 07/03/19 05:35 Labs: Abnormal Lab Results 07/03/19 07/03/19 07/02/19 05:35 05:35 05:25 Hgb Hct 55.3 H RDW 18.7 H Lymph % (Auto) [place] % (Auto) Lymph # (Auto) [place] # (Auto) Monocytes % (Manual) WBC Morphology Abnorm A Reactive Lymphocytes Smudge Cells 1+ A RBC Morphology Abnorm A Anisocytosis 1+ A Potassium 5.5 H Chloride 91 L 94 L Carbon Dioxide 21 L Anion Gap 22.0 H 18.0 H BUN 52 H 51 H Creatinine 10.0 H* 8.8 H* Glucose Calcium 7.9 L 7.7 L Phosphorus 7.8 H* 7.7 H* Total Bilirubin GGT 209 H 278 H AST 80 H ALT 63 H 102 H Alkaline Phosphatase 193 H 220 H Lactate Dehydrogenase 339 H 313 H NT-Pro-B Natriuret Pep Triglycerides 390 H 07/02/19 07/01/19 07/01/19 05:25 16:43 16:42 Hgb 17.8 H Hct 54.3 H 56.3 H RDW 18.5 H 18.6 H Lymph % (Auto) 8.6 L [place] % (Auto) 16.8 H Lymph # (Auto) 0.55 L [place] # (Auto) 1.08 H Monocytes % (Manual) 21 H WBC Morphology Reactive Lymphocytes 6 H Smudge Cells RBC Morphology Abnorm A Anisocytosis 1+ A Potassium Chloride Carbon Dioxide Anion Gap BUN Creatinine Glucose Calcium Phosphorus Total Bilirubin GGT AST ALT Alkaline Phosphatase Lactate Dehydrogenase NT-Pro-B Natriuret Pep 22208.0 H Triglycerides 07/01/19 16:42 Hgb Hct RDW Lymph % (Auto) [place] % (Auto) Lymph # (Auto) [place] # (Auto) Monocytes % (Manual) WBC Morphology Reactive Lymphocytes Smudge Cells RBC Morphology Anisocytosis Potassium Chloride 92 L Carbon Dioxide Anion Gap 19.0 H BUN 43 H Creatinine 7.3 H* Glucose 112 H Calcium 8.2 L Phosphorus Total Bilirubin 1.3 H GGT AST 111 H ALT 71 H Alkaline Phosphatase 219 H Lactate Dehydrogenase NT-Pro-B Natriuret Pep Triglycerides Meds: Medications Acetaminophen (Tylenol) 650 mg PO Q4-6HP PRN; Protocol PRN Reason: Per Pain Protocol/Fever > 101 Albuterol/Ipratropium (Duoneb) 3 ml NEB Q4HP PRN PRN Reason: Shortness Of Breath Last Admin: 07/03/19 09:18 Dose: 3 ml Documented by: Bisacodyl (Dulcolax) 10 mg OK Q2-3DAYS PRN PRN Reason: Constipation Calcium Acetate (Phoslo) 2,001 mg PO TIDCC [facility] Last Admin: 07/03/19 07:50 Dose: Not Given Documented by: Carvedilol (Coreg) 25 mg PO QHS [facility] Last Admin: 07/02/19 20:46 Dose: 25 mg Documented by: Carvedilol (Coreg) 50 mg PO QAM [facility] Last Admin: 07/03/19 09:33 Dose: 50 mg Documented by: Docusate Sodium (Colace) 100 mg PO BID [facility] Last Admin: 07/03/19 09:33 Dose: 100 mg Documented by: Hydromorphone HCl (Dilaudid) 0 mg IV Q4HP PRN; Protocol PRN Reason: Per Pain Protocol Acetaminophen (Ofirmev) 650 mg in 65 mls @ 130 mls/hr IV Q6HP PRN; Protocol PRN Reason: Per Pain Protocol/Fever > 101 Metronidazole (Flagyl) 500 mg in 100 mls @ 100 mls/hr IV Q8H [facility]; Protocol Last Infusion: 07/03/19 06:30 Dose: Infused Documented by: Levofloxacin (Levaquin) 500 mg in 100 mls @ 100 mls/hr IV Q48H [facility] Stop: 07/03/19 12:00 Levofloxacin (Levaquin) 500 mg in 100 mls @ 100 mls/hr IV Q48H [facility] Melatonin (Melatonin 3mg Tablet) 3 mg PO HSP PRN PRN Reason: Insomnia Minoxidil (Minoxidil) 20 mg PO HS [facility] Last Admin: 07/02/19 20:53 Dose: Not Given Documented by: Ondansetron HCl (Zofran) 4 mg IV Q4-6HP PRN; Protocol PRN Reason: Nausea And Vomiting Metronidazole [ (Metrocream] Cream) 1 dose TOPICAL BID [facility] Last Admin: 07/03/19 09:33 Dose: Not Given Documented by: Polyethylene Glycol (Miralax) 17 gm PO DAILYP PRN PRN Reason: Constipation Sodium Chloride (Saline Flush) 10 ml IV Q8 [facility] Last Admin: 07/03/19 05:30 Dose: 10 ml Documented by: Medical - PN: A/P - Time Spent With Patient Total time spent is greater than 50% in coordination of care (as documented) at patient's floor/unit and/or counseling patient: 25 - 35 minutes (1) Cholecystitis Status: Acute Assessment and plan: * Acute cholecystitis -continue antibiotics. MRCP today. Surgery on board. Likely will undergo operative intervention based on MRCP results * ESRD on hemodialysis per nephrology * Preoperative risk evaluation- Based on [employer] [place] heart [employer] risk stratification patient would categorically fall under high risk morbidity due to surgery specific risk, underlying obesity with BMI over 30, history of CHF and ESRD on hemodialysis. However patient has a fair functional baseline. Risk may include intraoperative and immediate postoperative ACS/CVA, however there are no modifiable risk factors at present. I recommend maintaining a map greater than 70 during intraoperative phase and use of capnometry and IS to minimize pulmonary compilations. Additionally surgery and anesthesia specific risks will be addressed by respective care providers during their preoperative evaluations. Patient expresses understanding of above risks going into surgery. Echocardiogram severe concentric LVH along with grade 3 diastolic dysfunction 70% EF. * History of CHF continue Coreg. Patient was evaluated at [facility] in April with negative stress test. Echocardiogram as above * History of hypertension on Coreg * History tobacco dependence quit 6 months ago * Obesity hypoventilation syndrome-patient was prescribed CPAP but not using it * History of COPD non-oxygen dependent -continue bronchodilators * Full code * Prophylaxis we will start heparin post surgery Plan * MRCP today * Await further surgery recommendations * Keep n.p.o. * HD per nephrology * No modifiable risk factor at this time. Continue prior home medications Current Visit: Yes Medical - PN: Qual - Stroke Symptom Onset Unknown: No - VTE Deep Vein Thrombosis/Pulmonary Embolism Present on Admission: No
--- NOTE | 2019-07-03 09:48 | Discharge Summary ---
Medical - DS: Prov Patient information: Note initiated : 07/03/19 at 9:46 am Service Date, if different from initiated Date: [] Patient: Blake Camacho 48 y/o M admitted on 07/01/19 for right upper quadrant pain, constipation. Chief Complaint: [] Date of admission: 07/01/19 20:06 Discharge date: 07/03/19 Primary care physician: Jaylon Cutler Consults: 07/02/19 07:17 Consult to Physician [CONS] Routine Comment: Consulting Provider: Van Elizabeth Reason For Exam: Physician to Consult 07/02/19 09:34 Consult to Physician [CONS] Routine Comment: Consulting Provider: Preston Mcguire Reason For Exam: Physician to Consult Medical - DS: Meds - Discharge Medications Prescriptions: Ciprofloxacin HCl [Cipro] 500 mg PO BID #20 tab Transmission Status: Pending to [facility] metroNIDAZOLE [Metronidazole] 500 mg PO TID #30 tab Transmission Status: Pending to [facility] Active and Home Medications: Home Medications Calcium Acetate [Phoslo] 2,001 mg PO TIDCC 03/14/15 [History Confirmed 07/02/19 Last Taken 07/01/19 2] Nulecit 62.5 mg IV WEEKLY 03/14/15 [History Confirmed 07/02/19 Last Taken 07/01/19 1 Dose] Nutritional Supplement [Novasource Renal] 237 ml PO WEEKLY 03/14/15 [History Confirmed 07/02/19 Last Taken 07/01/19 1 Can] Carvedilol [Coreg] 50 mg PO QAM 03/26/16 [History Confirmed 07/02/19 Last Taken 07/01/19 20 mg] metronidazole 0.75 % topical cream 1 applic TOPICAL BID #45 g 10/19/16 [Rx Confirmed 07/02/19 Last Taken 07/01/19 1 Application] Carvedilol [Coreg] 25 mg PO QHS 03/15/19 [History Confirmed 07/02/19 Last Taken 06/30/19 25 mg] Minoxidil 20 mg PO HS 07/01/19 [History Confirmed 07/02/19 Last Taken 06/30/19 20 mg] Ciprofloxacin HCl [Cipro] 500 mg PO BID #20 tab 07/03/19 [Rx Last Taken Unknown] metroNIDAZOLE [Metronidazole] 500 mg PO TID #30 tab 07/03/19 [Rx Last Taken Unknown] Medical - DS: Hosp Hospital Course: Discharge diagnosis * Acute cholecystitis -MRCP no evidence of active cholecystitis. Surgery recommends against cholecystectomy. Discharging home. Continue antibiotic for additional 10 days. Follow-up with surgery as outpatient. * History of CHF continue Coreg. Patient was evaluated at [facility] in April with negative stress test. Echocardiogram as above * History of hypertension continue Coreg * End-stage renal disease continue hemodialysis schedule outpatient * History tobacco dependence quit 6 months ago * Obesity hypoventilation syndrome-patient was prescribed CPAP but not using it * History of COPD non-oxygen dependent -continue bronchodilators Brief hospital course Mr. 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 Cutler. Patient also carries a history of congestive heart failure but has a stress test done in April at [facility] with apical wall motion abnormality. Patient otherwise has been doing well with ongoing hemodialysis. Today he woke up fine and went to hemodialysis and had a hamburger for lunch shortly thereafter start experiencing epigastric/right upper abdominal pain. Described as 6 out of 10 to 8 out of 10 with no radiation cramping associated nausea but no fever chills. Patient presents to the ER for evaluation. Initial work-up was consistent with acute cholecystitis. Surgery was consulted. Given history of end-stage renal disease on hemodialysis/history of congestive heart failure hospital service was requested for admission while patient will undergo cholecystectomy in a.m. At the time evaluation patient is alert and oriented. He was able to answer most of the questions and endorsed to history as above. He denies fever shaking chills, jaundice, prior similar episode except for a year ago which self resol costa. He lives with his friends at [place]. He quit smoking 6 months ago and quit chewing 3 months ago. Denies alcoholism 07/02-patient doing well. Abdominal pain improved. On antibiotic coverage. MRCP today. Surgery on board. Ongoing hemodialysis. Slightly short of breath but hemodynamically stable. No overnight fever chills nausea vomiting or concerns per staff. Ongoing treatment for pre-existing medical issues 07/03-MRCP no evidence of active cholecystitis. Surgery recommends discharge. Patient started on diet. Ongoing hemodialysis. Feels at baseline. Denies abdominal pain nausea vomiting or fever. Discharging on additional 10 days antibiotics. Will follow with surgery as outpatient. Discharge diagnosis: . - Time Spent with Patient Total time spent providing and/or coordinating discharge services: Greater than 30 minutes Medical - DS: Exam - Constitutional Vitals: Vital Signs Temp Pulse Pulse Resp BP BP BP 07/03/19 09:41 22 07/03/19 09:23 81 16 07/03/19 09:19 82 16 07/03/19 07:58 97.4 F 18 146/104 07/03/19 07:04 102 H 20 07/03/19 03:40 97.1 F 90 20 131/88 07/02/19 23:15 99.4 F H 99 H 20 112/82 07/02/19 22:20 07/02/19 20:40 07/02/19 19:15 98.9 F 103 H 24 H 133/85 07/02/19 18:55 07/02/19 18:50 93 H 07/02/19 16:00 97.8 F 101 H 22 130/95 07/02/19 12:57 80 127/107 07/02/19 12:46 100 H 118/77 07/02/19 12:35 93 H 215/99 07/02/19 12:15 80 222/108 07/02/19 12:05 74 199/120 07/02/19 11:32 80 166/100 07/02/19 11:00 89 136/89 07/02/19 10:33 100 H 126/112 07/02/19 10:00 96.9 F L 93 H 138/89 Pulse Ox 07/03/19 09:41 93 07/03/19 09:23 88 L 07/03/19 09:19 07/03/19 07:58 07/03/19 07:04 93 07/03/19 03:40 93 07/02/19 23:15 90 07/02/19 22:20 91 07/02/19 20:40 90 07/02/19 19:15 92 07/02/19 18:55 97 07/02/19 18:50 88 L 07/02/19 16:00 91 07/02/19 12:57 07/02/19 12:46 07/02/19 12:35 07/02/19 12:15 07/02/19 12:05 07/02/19 11:32 07/02/19 11:00 07/02/19 10:33 07/02/19 10:00 Intake and Output 07/02/19 07/03/19 07/03/19 21:59 05:59 13:59 Intake Total 460 1540 220 Output Total 0 0 Balance 460 1540 220 Intake: IV 100 100 100 Oral 360 1440 120 Output: Void Amount 0 0 Other: Meal Cream soup Cream soup Breakfast Percent of Meal Consumed 100% 100% 100% Feeding Ability Independent Independent Independent Weight 224 lb Medical - DS: Data Labs on day of discharge: Labs from last 24 hours 07/03/19 07/03/19 07/02/19 05:35 05:35 12:11 WBC 5.9 RBC 5.84 Hgb 17.4 Hct 55.3 H MCV 94.7 MCH 29.8 MCHC 31.5 RDW 18.7 H Plt Count 160 MPV 10.2 Total Counted 100 Seg Neutrophils % 53 Band Neutrophils % 6 Lymphocytes % 22 Monocytes % (Manual) 12 Eosinophils % (Manual) 7 WBC Morphology Abnorm A Smudge Cells 1+ A Platelet Estimate Normal RBC Morphology Abnorm A Anisocytosis 1+ A Sodium 134 Potassium 4.9 Chloride 91 L Carbon Dioxide 21 L Anion Gap 22.0 H BUN 52 H Creatinine 10.0 H* GFR Calculation 5 Glucose 97 Uric Acid 6.2 Calcium 7.9 L Phosphorus 7.8 H* Magnesium 2.1 Total Bilirubin 0.4 Direct Bilirubin < 0.2 GGT 209 H AST < 5 ALT 63 H Alkaline Phosphatase 193 H Lactate Dehydrogenase 339 H Total Protein 6.7 Albumin 3.6 Globulin 3.1 Albumin/Globulin Ratio 1.2 Triglycerides 390 H Opiates Screen Pending Methadone Pending Propoxyphene & Metabol Pending Methaqualone Pending Barbiturate Screen Pending Phencyclidine Screen Pending Amphetamines Screen Pending Benzodiazepines Screen Pending Cocaine Screen Pending Marijuana (THC) Screen Pending Drug Screen Specimen Pending Medical - DS: A/P - Patient/Caregiver Discharge Instructions Activity: increase activity as tolerated Diet: Renal/Consistent Carbs Additional Instructions: Outpatient sleep study Follow-up nephrology for scheduled hemodialysis Follow-up surgery in 10 days continue antibiotics for 10 days No alcohol due to high risk disulfiram-like reaction Return to ER if worsening abdominal pain fever chills Prescriptions: Ciprofloxacin HCl [Cipro] 500 mg PO BID #20 tab Transmission Status: Pending to [facility] metroNIDAZOLE [Metronidazole] 500 mg PO TID #30 tab Transmission Status: Pending to [facility] - Follow up Plan Follow up with: Jaylon Cutler MD [Primary Care Provider] - Disposition: Home, Self-Care Prognosis: Good Rehab Potential: Fair I certify that the patient requires SNF services: No Overall status at discharge: patient is progressing back to baseline Medical - DS: Qual - VTE Deep Vein Thrombosis/Pulmonary Embolism Present on Admission: No
[2019-07-03] MEDS ORDERED: FLU VACC QS2019-20(6MOS UP)/PF 60 MCG/0.5 ML SYRINGE IM ONE (10:00)
[2019-07-03] MEDS ORDERED: LEVOFLOXACIN 500 MG TABLET PO ONE (10:01)
--- NOTE | 2019-07-03 10:03 | Consultation ---
DATE OF CONSULTATION: 07/02/2019 REASON FOR CONSULTATION: End-stage renal disease. HISTORY OF PRESENT ILLNESS: The patient is a 48-year-old gentleman with a history of polycystic kidney disease on hemodialysis. He dialyzes Mondays, Wednesdays, and Fridays at [facility]. He also has a history of ___ wall motion abnormalities. For the longest time, he used to smoke for which reason he is not considered a candidate for a kidney transplant, but recently he quit smoking and about 3 months ago he quit chewing tobacco as well. He is currently referred back for kidney transplant. After dialysis, he went and had a hamburger for lunch and shortly after that experienced epigastric and right upper quadrant pain. It was 8/10 and was radiating without any chills or fevers. He came to the emergency room, and the initial concern was acute cholecystitis. For those reasons, he is hospitalized. PAST MEDICAL HISTORY: 1. Polycystic kidney disease on hemodialysis. 2. Tobacco chewing. He recently quit. He quit smoking as well. 3. Marijuana use. He has not used that either. 4. Lumbar disk disease. 5. Hyperlipidemia. 6. Hypertension 7. Hearing loss. 8. On and off hematuria. 9. Anxiety. PAST SURGICAL HISTORY: None. FAMILY HISTORY: There is history of polycystic kidney disease. His father had polycystic kidney disease. CURRENT MEDICATIONS: 1. PhosLo 2001 mg p.o. three times daily with meals. 2. Carvedilol 50 mg in the morning and 25 mg at night. 3. Minoxidil 20 mg at night. ALLERGIES: 1. PENICILLIN. 2. LISINOPRIL. 3. KETAMINE. 4. TRAMADOL. 5. LATEX. PHYSICAL EXAMINATION: GENERAL: Alert, oriented x3. He is not in any distress. VITAL SIGNS: Blood pressure is 140-150 systolic with diastolic in the 90s. Pulse rate 95, respiratory rate of 18, pulse oximetry of 91%. HEENT: NC/AT. Pupils are reactive to light. External ear and tympanic membranes normal. Oral cavity appears normal. NECK: Supple. No jugular venous distention or lymphadenopathy. No thyromegaly. No carotid bruits. LUNGS: Decreased air entry bilaterally. No rales or rhonchi. CARDIAC: S1, S2 heard. No S3, S4. No murmurs. ABDOMEN: Soft, nontender. No organomegaly. Positive bowel sounds. There is mild right upper quadrant tenderness. EXTREMITIES: Did not show any evidence of edema. Difficult to palpate his dorsalis pedis and posterior tibials. No skin rash or joint swellings noted. NEUROLOGIC: Grossly intact. LABORATORY DATA: White count is 6.4 with a hemoglobin of 17.8 and a platelet count of 151. Sodium 138, potassium 5.0, chloride of 92, CO2 of 27. ASSESSMENT AND PLAN: 1. End-stage renal disease on hemodialysis. He is scheduled to have surgery this afternoon for gallbladder removal. His potassium is slightly high. For that reason, he will have hemodialysis today and will be ready for surgery as planned. 2. Hypertension. Blood pressure will get better with hemodialysis. 3. Hypokalemia. We will correct with hemodialysis. SHEREEN:celina Job ID: [id number] Doc ID: [id number] Jaylon Cutler MD
[2019-07-05] MEDS ORDERED: LEVOFLOXACIN 500 MG/100 ML BAG IV SCH (09:00)
== END 2019-07-03 13:05 | disposition home or self-care (01) | DRG 444 ==
LOC: ED 16:16 → MEDSUR 20:06
PROVIDERS: ADMIT Internal Medicine; ATTEND Internal Medicine

== ENCOUNTER 2020-04-25 19:11 | Inpatient (IN) ==
[2020-04-25 19:56] LABS: POC Blood Urea Nitrogen 115 mg/dL (6-20); POC CO2 23 mmol/L (22-30); POC Calcium, Ionized 1.04 mmEq/L (1.16-1.32); POC Chloride 101 mEq/L (96-108); POC Creatinine 14.3 mg/dL (0.6-1.2); POC Glucose, Random 77 mg/dL (70-105); POC Hematocrit 51 % (41-55); POC Potassium 6.9 mEql/L (3.3-5.1); POC Sodium 132 mEq/L (133-145)
[2020-04-25 20:21] LABS: Basophils # (Auto) 0.05 K/mcL (0.00-0.20); Basophils % (Auto) 0.6 % (0.0-2.0); Eosinophils # (Auto) 0.54 K/mcL (0.00-0.70); Eosinophils % (Auto) 6.9 % (0.0-7.0); Hematocrit 53.5 % (41.0-55.0); Hemoglobin 16.8 g/dL (13.5-16.5); Lymphocytes # (Auto) 1.35 K/mcL (1.50-4.80); Lymphocytes % (Auto) 17.2 % (15.0-49.0); Mean Corpuscular HGB Conc 31.4 g/dL (31.0-36.0); Monocytes # (Auto) 1.12 K/mcL (0.10-0.90); Monocytes % (Auto) 14.3 % (1.0-12.0); Platelet Count 190 K/mcL (140-440); RBC 5.63 M/mcL (4.50-5.90); Red Cell Distribution Width 19.3 % (11.5-14.5); WBC 7.9 K/mcL (4.5-11.0)
[2020-04-25 20:53] LABS: ALT/SGPT 37 U/L (<40); AST/SGOT 34 U/L (<40); Albumin 4.2 gm/dL (3.2-5.2); Albumin/Globulin Ratio 1.4 (1.0-2.3); Alkaline Phosphatase 169 U/L (39-117); Bilirubin,Total 0.5 mg/dL (0.1-1.0); Blood Urea Nitrogen 105 mg/dL (6-20); Calcium 8.8 mg/dL (8.6-10.4); Carbon Dioxide 18 mmol/L (22-30); Chloride 90 mmol/L (96-108); Globulin 3.1 gm/dL (2.2-3.7); Glomerular Filtration Rate 4; Glucose 79 mg/dL (70-105)
--- NOTE | 2020-04-25 21:06 | Emergency Department Note ---
Recheck HPI General Chief Complaint: Recheck/Abnormal Lab/Rx Stated Complaint: missed dialysis Time Seen by Provider: 04/25/20 19:20 Source: patient Mode of arrival: ambulatory Limitations: no limitations History of Present Illness HPI Narrative: Narrative: 49-year-old male presents with shortness of breath, generally feeling poor, and requesting dialysis. He is a Dr. Cutler patient and receives dialysis on Saturday, Saturday, and Saturday. States he recently moved from [place] up to [facility] in [place] because he can breathe better there. Unfortunately he did not have transportation and missed his 5 AM dialysis appointment this morning as well as his interventional radiology appointment regarding peripheral vascular disease to left upper extremity. States he just cannot find a ride to either. Tonight he is miserable and more short of breath so he thought he better come in and try to get some dialysis. No cough or cold symptoms. No fever or chills. States the swelling to his left arm and redness has been present for about a year. That is why they are sending him to interventional radiology. It is not any worse than usual. Related Data Home Medications Medication Instructions Recorded Confirmed Nulecit 62.5 mg IV WEEKLY 03/14/15 07/02/19 calcium acetate(phosphat bind) 2,001 mg PO TIDCC 03/14/15 07/02/19 nut.tx.impaired renal fxn,soy 237 ml PO WEEKLY 03/14/15 07/02/19 carvedilol 50 mg PO QAM 03/26/16 07/02/19 carvedilol 25 mg PO QHS 03/15/19 07/02/19 minoxidil 20 mg PO HS 07/01/19 07/02/19 Previous Rx's Medication Instructions Recorded metronidazole 0.75 % topical cream 1 applic TOPICAL BID #45 g 10/19/16 ciprofloxacin HCl 500 mg PO Q18H #13 tab 07/03/19 metronidazole 500 mg PO TID #30 tab 07/03/19 benzonatate 200 mg PO Q8HP PRN #30 cap 09/03/19 doxycycline monohydrate 100 mg PO BID #14 cap 09/03/19 sulfamethoxazole-trimethoprim 1 tab PO BID #14 tab 04/12/20 [Bactrim DS] Allergies Allergy/AdvReac Type Severity Reaction Status Date / Time Penicillins [PENICILLINS] Allergy Severe Difficulty Verified 04/25/20 19:14 Breathing lisinopril [LISINOPRIL] AdvReac Intermediate SHUTS DOWN Verified 04/25/20 19:14 KIDNEYS ketamine [KETAMINE] AdvReac Mild IRRATIONAL, Verified 04/25/20 19:14 EXCITABILITY, PSYCHOSIS tramadol [TRAMADOL] AdvReac Mild Nausea Verified 04/25/20 19:14 latex AdvReac Unknown Unknown Verified 04/25/20 19:14 Review of Systems ROS ROS Narrative: Narrative: All systems ED: reviewed and negative except as stated. [facility] Narrative Patient History Narrative: Narrative: Medical/Surgical/Family History All Active Problems (Updated 04/25/20 @ 21:06 by STELLA Quinones) Right upper quadrant pain (Acute) Congestive heart failure (Acute) Cholecystitis (Acute) Cholecystitis (Acute) Abdominal pain (Acute) Dilated cbd, acquired (Acute) Bronchitis (Acute) ESRD on dialysis (Acute) History of seizure (Acute) Left facial swelling (Acute) Candidiasis of penis (Acute) Cellulitis of arm, left (Acute) End stage kidney disease (Acute) Dialysis patient (Acute) Missed dialysis (Acute) Acute dyspnea (Acute) Hyperkalemia (Acute) Hand arthropathy (Acute) Rash and nonspecific skin eruption (Chronic) Light cigarette smoker (1-9 cigarettes per day) (Chronic) Marijuana use (Chronic) Chewing tobacco use (Chronic) Polycystic kidney disease (Chronic ~1985) AV fistula (Chronic) Vitamin D deficiency (Chronic) Tobacco abuse (Chronic) Renal osteodystrophy (Chronic) Prostate infection (Chronic) Obesity (Chronic) Lumbar disc disease (Chronic) Hyperlipidemia (Chronic) Low back pain (Chronic) Hypertension, essential (Chronic) Hearing loss (Chronic) Electrolyte and fluid disorders not elsewhere classified (Chronic) Chronic kidney disease, stage V (Chronic) Bladder disorder (Chronic) Hematuria (Acute) Lower extremity edema (Acute) Abscess of skin (Acute) Headache (Acute) Medical History Abscess of skin (Acute) Amyloidosis (Suspected) Anxiety disorder (Resolved) AV fistula (Chronic) Bladder disorder (Chronic) Chewing tobacco use (Chronic) occasional Chronic kidney disease, stage V (Chronic) Electrolyte and fluid disorders not elsewhere classified (Chronic) Hand arthropathy (Acute) Headache (Acute) Hearing loss (Chronic) Difficulty Hematuria (Acute) Hyperlipidemia (Chronic) Hypertension, essential (Chronic) Idiopathic hypersomnia with long sleep time (Resolved) Light cigarette smoker (1-9 cigarettes per day) (Chronic) trying to quit so he can be on transplant list Low back pain (Chronic) Lower extremity edema (Acute) Lumbar disc disease (Chronic) Marijuana use (Chronic) ok to smoke when on transplant list Nonspecific finding on examination of urine (Resolved) Obesity (Chronic) Polycystic kidney disease (Chronic ~1985) Hyperkalemia. better. Had dialysis yesterday. Being discharged today. Prostate infection (Chronic) in patient's ' Rash and nonspecific skin eruption (Chronic) Renal osteodystrophy (Chronic) Stress reaction, acute (Resolved) Tobacco abuse (Chronic) Vitamin D deficiency (Chronic) Surgical History History of surgery (Chronic ~04/2011) AV fistula Family History Mother Arthritis Breast cancer Diabetes Cancer of intestinal tract Father Hypertension, essential Polycystic kidney, autosomal dominant Family/Other Polycystic kidney, autosomal dominant Aunt Polycystic kidney disease Aunt Family/Other Polycystic kidney disease Cousin Social History Smoking Status: Former smoker Alcohol Intake Frequency: holiday/special occasion only Substance Use: marijuana Exam Narrative Narrative: Narrative: General Limitations: no limitations General appearance: Present alert and obese Head Head: Present atraumatic and normocephalic Eye Eye: Present normal appearance; Absent conjunctival injection ENT ENT: Present normal exam, normal oropharynx, mucous membranes moist, TM's normal bilaterally and normal external ear exam Neck Neck: Present normal inspection and trachea midline; Absent lymphadenopathy Chest Chest: Present symmetric chest wall rise Respiratory Respiratory: Present other (Diminished in the bases bilaterally and slight tachypnea with a rate of 24 on exam.); Absent respiratory distress, wheezes, stridor and accessory muscle use Cardiovascular Cardiovascular: Present regular rate and normal heart sounds Extremities Extremities: Absent normal inspection (Left arm from the elbow down throughout the hand does have moderate diffuse edema. Mild redness. No warmth. No induration or drainage and the skin is intact.) and pedal edema Neurological Neurological: Present alert and oriented X3 Psychiatric Psychiatric: Present normal affect and normal mood Skin Skin: Present warm (WNL), dry, intact and normal color Course Course Course Narrative: @2100 Dr. Grimes, hospitalist agrees to accept pt Vital Signs Vital signs: Vital Signs Temperature 98.0 F 04/25/20 19:11 Pulse Rate 87 04/25/20 19:11 Respiratory Rate 20 04/25/20 19:11 Blood Pressure 200/106 04/25/20 19:11 Pulse Oximetry (%) 95 04/25/20 19:11 Temperature 98.0 F 04/25/20 19:11 Pulse Rate 90 04/25/20 21:34 Respiratory Rate 16 04/25/20 21:34 Blood Pressure 183/103 04/25/20 21:31 Pulse Oximetry (%) 93 04/25/20 21:34 MDM MDM Narrative Medical decision making narrative: Narrative: At [address] did speak with Dr[address] Cutler regarding this patient. He agrees to consult for care and would like the bunk house worker to notify him on his arrival to. We do have a call into the hospitalist. Patient will need to be admitted and dialyzed tonight. Lab Data Lab results reviewed: Yes I reviewed the patient's lab results. Result diagrams: 04/25/20 19:25 04/25/20 19:25 Labs: Lab Results 04/25/20 04/25/20 04/25/20 Range/Units 19:25 19:25 19:25 WBC 7.9 (4.5-11.0) K/mcL RBC 5.63 (4.50-5.90) M/mcL Hgb 16.8 H (13.5-16.5) g/dL Hct 53.5 (41.0-55.0) % POC Hct 51 (41-55) % MCV 95.0 (80.0-100.0) fL MCH 29.8 (26.0-34.0) pg MCHC 31.4 (31.0-36.0) g/dL RDW 19.3 H (11.5-14.5) % Plt Count 190 (140-440) K/mcL MPV 10.0 (7.4-10.4) fL Neut % (Auto) 61.0 (38.0-78.0) % Lymph % (Auto) 17.2 (15.0-49.0) % [place] % (Auto) 14.3 H (1.0-12.0) % Eos % (Auto) 6.9 (0.0-7.0) % Baso % (Auto) 0.6 (0.0-2.0) % Lymph # (Auto) 1.35 L (1.50-4.80) K/mcL [place] # (Auto) 1.12 H (0.10-0.90) K/mcL Eos # (Auto) 0.54 (0.00-0.70) K/mcL Baso # (Auto) 0.05 (0.00-0.20) K/mcL Absolute Neutrophils 4.79 (1.80-8.00) K/mcL POC Sodium 132 L (133-145) mEq/L Sodium 132 L (133-145) mmol/L POC Potassium 6.9 H* (3.3-5.1) mEql/L Potassium 7.1 H* (3.3-5.1) mmol/L POC Chloride 101 (96-108) mEq/L Chloride 90 L (96-108) mmol/L Carbon Dioxide 18 L (22-30) mmol/L POC Total CO2 23 (22-30) mmol/L Anion Gap 24.0 H (8.0-16.0) POC BUN 115 H* (6-20) mg/dL BUN 105 H* (6-20) mg/dL Creatinine 13.0 H* (0.7-1.2) mg/dL POC Creatinine 14.3 H* (0.6-1.2) mg/dL GFR Calculation 4 Glucose 79 (70-105) mg/dL POC Glucose 77 (70-105) mg/dL Calcium 8.8 (8.6-10.4) mg/dL POC WB Ioniz Calcium 1.04 L (1.16-1.32) mmEq/L Total Bilirubin 0.5 (0.1-1.0) mg/dL AST 34 (<40) U/L ALT 37 (<40) U/L Alkaline Phosphatase 169 H (39-117) U/L Total Protein 7.3 (5.9-8.4) gm/dL Albumin 4.2 (3.2-5.2) gm/dL Globulin 3.1 (2.2-3.7) gm/dL Albumin/Globulin Ratio 1.4 (1.0-2.3) SARS-CoV-2 (PCR) (Negative) 04/25/20 Range/Units 20:37 WBC (4.5-11.0) K/mcL RBC (4.50-5.90) M/mcL Hgb (13.5-16.5) g/dL Hct (41.0-55.0) % POC Hct (41-55) % MCV (80.0-100.0) fL MCH (26.0-34.0) pg MCHC (31.0-36.0) g/dL RDW (11.5-14.5) % Plt Count (140-440) K/mcL MPV (7.4-10.4) fL Neut % (Auto) (38.0-78.0) % Lymph % (Auto) (15.0-49.0) % [place] % (Auto) (1.0-12.0) % Eos % (Auto) (0.0-7.0) % Baso % (Auto) (0.0-2.0) % Lymph # (Auto) (1.50-4.80) K/mcL [place] # (Auto) (0.10-0.90) K/mcL Eos # (Auto) (0.00-0.70) K/mcL Baso # (Auto) (0.00-0.20) K/mcL Absolute Neutrophils (1.80-8.00) K/mcL POC Sodium (133-145) mEq/L Sodium (133-145) mmol/L POC Potassium (3.3-5.1) mEql/L Potassium (3.3-5.1) mmol/L POC Chloride (96-108) mEq/L Chloride (96-108) mmol/L Carbon Dioxide (22-30) mmol/L POC Total CO2 (22-30) mmol/L Anion Gap (8.0-16.0) POC BUN (6-20) mg/dL BUN (6-20) mg/dL Creatinine (0.7-1.2) mg/dL POC Creatinine (0.6-1.2) mg/dL GFR Calculation Glucose (70-105) mg/dL POC Glucose (70-105) mg/dL Calcium (8.6-10.4) mg/dL POC WB Ioniz Calcium (1.16-1.32) mmEq/L Total Bilirubin (0.1-1.0) mg/dL AST (<40) U/L ALT (<40) U/L Alkaline Phosphatase (39-117) U/L Total Protein (5.9-8.4) gm/dL Albumin (3.2-5.2) gm/dL Globulin (2.2-3.7) gm/dL Albumin/Globulin Ratio (1.0-2.3) SARS-CoV-2 (PCR) Negative (Negative) Radiology Data Radiology results reviewed: Yes I reviewed the patient's radiology results. Discharge Plan Patient/Caregiver Discharge Instructions Pt seen by MANAGER VIDEO/PA only: Yes Clinical Impression: End stage kidney disease, Dialysis patient, Missed dialysis, Acute dyspnea, Hyperkalemia Patient Disposition: Xfer As Inpt ([facility]) Condition: Fair Follow up with: Jaylon Cutler MD [Primary Care Provider] - Prescriptions: No Action metronidazole 0.75 % cream 1 applic TOPICAL BID Qty: 45 RF: 0 nut.tx.impaired renal fxn,soy 240 ML liquid 237 ml PO WEEKLY RF: 0 Nulecit 62.5 mg IV WEEKLY RF: 0 calcium acetate(phosphat bind) 667 MG capsule 2,001 mg PO TIDCC RF: 0 carvedilol 25 MG tablet 50 mg PO QAM RF: 0 carvedilol 25 MG tablet 25 mg PO QHS RF: 0 minoxidil 10 MG tablet 20 mg PO HS RF: 0 metronidazole 500 MG tablet 500 mg PO TID Qty: 30 RF: 0 ciprofloxacin HCl 500 MG tablet 500 mg PO Q18H Qty: 13 RF: 0 benzonatate 200 MG capsule 200 mg PO Q8HP PRN (Reason: Cough) Qty: 30 RF: 0 doxycycline monohydrate 100 MG capsule 100 mg PO BID Qty: 14 RF: 0 sulfamethoxazole-trimethoprim [Bactrim DS] 800-160 mg tablet 1 tab PO BID Qty: 14 RF: 0
--- NOTE | 2020-04-25 21:47 | Internal Med History&Physical ---
HPI History of Present Illness Patient information: Note initiated : 04/25/20 at 9:40 pm Service Date, if different from initiated Date: [] Patient: Blake Camacho 49 y/o M admitted on for missed dialysis. Chief Complaint: [] History of present illness: Mr. Camacho is a 49 year old M Presents to the ED not feeling well. Does he missed hemodialysis because of transportation issues and that woke up this morning his face was swollen and he knew he needed to get dialysis. Also reports when he is coming in town he was more short of breath when he was walking the gas station. Denies any chest pain coughing fever chills nausea vomiting. The ER he was evaluated with vital signs with oxygen saturations of 90% on room air. Chest x-ray with some pulmonary vascular congestion. Potassium elevated at 7.1. He was contacted for urgent dialysis. Review of Systems: Pertinent positives as above. Denies headache/fever/chills/nausea/vomiting/chest or abdominal pain/cough/diarrhea. Many 10 point review of system reviewed negative PFSH PFSH All Active Problems (Updated 04/25/20 @ 21:06 by Tram Taylor [facility]) Right upper quadrant pain (Acute) Congestive heart failure (Acute) Cholecystitis (Acute) Cholecystitis (Acute) Abdominal pain (Acute) Dilated cbd, acquired (Acute) Bronchitis (Acute) ESRD on dialysis (Acute) History of seizure (Acute) Left facial swelling (Acute) Candidiasis of penis (Acute) Cellulitis of arm, left (Acute) End stage kidney disease (Acute) Dialysis patient (Acute) Missed dialysis (Acute) Acute dyspnea (Acute) Hyperkalemia (Acute) Hand arthropathy (Acute) Rash and nonspecific skin eruption (Chronic) Light cigarette smoker (1-9 cigarettes per day) (Chronic) Marijuana use (Chronic) Chewing tobacco use (Chronic) Polycystic kidney disease (Chronic ~1985) AV fistula (Chronic) Vitamin D deficiency (Chronic) Tobacco abuse (Chronic) Renal osteodystrophy (Chronic) Prostate infection (Chronic) Obesity (Chronic) Lumbar disc disease (Chronic) Hyperlipidemia (Chronic) Low back pain (Chronic) Hypertension, essential (Chronic) Hearing loss (Chronic) Electrolyte and fluid disorders not elsewhere classified (Chronic) Chronic kidney disease, stage V (Chronic) Bladder disorder (Chronic) Hematuria (Acute) Lower extremity edema (Acute) Abscess of skin (Acute) Headache (Acute) Medical History Abscess of skin (Acute) Amyloidosis (Suspected) Anxiety disorder (Resolved) AV fistula (Chronic) Bladder disorder (Chronic) Chewing tobacco use (Chronic) occasional Chronic kidney disease, stage V (Chronic) Electrolyte and fluid disorders not elsewhere classified (Chronic) Hand arthropathy (Acute) Headache (Acute) Hearing loss (Chronic) Difficulty Hematuria (Acute) Hyperlipidemia (Chronic) Hypertension, essential (Chronic) Idiopathic hypersomnia with long sleep time (Resolved) Light cigarette smoker (1-9 cigarettes per day) (Chronic) trying to quit so he can be on transplant list Low back pain (Chronic) Lower extremity edema (Acute) Lumbar disc disease (Chronic) Marijuana use (Chronic) ok to smoke when on transplant list Nonspecific finding on examination of urine (Resolved) Obesity (Chronic) Polycystic kidney disease (Chronic ~1985) Hyperkalemia. better. Had dialysis yesterday. Being discharged today. Prostate infection (Chronic) in patient's ' Rash and nonspecific skin eruption (Chronic) Renal osteodystrophy (Chronic) Stress reaction, acute (Resolved) Tobacco abuse (Chronic) Vitamin D deficiency (Chronic) Surgical History History of surgery (Chronic ~04/2011) AV fistula Family History Mother Arthritis Breast cancer Diabetes Cancer of intestinal tract Father Hypertension, essential Polycystic kidney, autosomal dominant Family/Other Polycystic kidney, autosomal dominant Aunt Polycystic kidney disease Aunt Family/Other Polycystic kidney disease Cousin Social History marital status: single smoking status: Former smoker alcohol intake frequency: holiday/special occasion only substance use type: marijuana MEDS/ALLERGIES Home Medications and Allergies Home Medications Medication Instructions Recorded Confirmed Type Nulecit 62.5 mg IV WEEKLY 03/14/15 07/02/19 History nut.tx.impaired renal fxn,soy 237 ml PO WEEKLY 03/14/15 07/02/19 History carvedilol 50 mg PO QAM 03/26/16 04/25/20 History carvedilol 25 mg PO QHS 03/15/19 04/25/20 History minoxidil 20 mg PO QDAY 07/01/19 04/25/20 History Allergies Allergy/AdvReac Type Severity Reaction Status Date / Time Penicillins [PENICILLINS] Allergy Severe Difficulty Verified 04/25/20 19:14 Breathing lisinopril [LISINOPRIL] AdvReac Intermediate SHUTS DOWN Verified 04/25/20 19:14 KIDNEYS ketamine [KETAMINE] AdvReac Mild IRRATIONAL, Verified 04/25/20 19:14 EXCITABILITY, PSYCHOSIS tramadol [TRAMADOL] AdvReac Mild Nausea Verified 04/25/20 19:14 latex AdvReac Unknown Unknown Verified 04/25/20 19:14 EXAM Constitutional Vitals: Temp Pulse Resp BP Pulse Ox 98.0 F 90 16 183/103 93 04/25/20 19:11 04/25/20 21:34 04/25/20 21:34 04/25/20 21:31 04/25/20 21:34 Exam: General: Alert, Awake, No acute Distress Eyes/N/T: EOMI, PERRL, Head/Neck: neck supple, normocephalic atraumatic CV: RRR, No murmurs, normal s1/s2 Pulm: Clear b/l, no wheezing/rhonchi/rales Abd: soft, nontender, +BS x4 Ext: no clubbing/cyanosis, trace LLE edema Neuro: Alert, no focal deficits, moves all extremities, CN 2-12 grossly intact, symmetrical strength b/l upper/lower, sensations intact b/l upper/lower Skin: warm/dry DATA Data Completed and Pending Labs: Labs from last 24 hours 04/25/20 04/25/20 04/25/20 20:37 19:25 19:25 WBC RBC Hgb Hct POC Hct MCV MCH MCHC RDW Plt Count MPV Neut % (Auto) Lymph % (Auto) [place] % (Auto) Eos % (Auto) Baso % (Auto) Lymph # (Auto) [place] # (Auto) Eos # (Auto) Baso # (Auto) Absolute Neutrophils VBG Lactic Acid Pending POC Sodium Sodium 132 L POC Potassium Potassium 7.1 H* POC Chloride Chloride 90 L Carbon Dioxide 18 L POC Total CO2 Anion Gap 24.0 H POC BUN BUN 105 H* Creatinine 13.0 H* POC Creatinine GFR Calculation 4 Glucose 79 POC Glucose Calcium 8.8 POC WB Ioniz Calcium Total Bilirubin 0.5 AST 34 ALT 37 Alkaline Phosphatase 169 H Total Protein 7.3 Albumin 4.2 Globulin 3.1 Albumin/Globulin Ratio 1.4 SARS-CoV-2 (PCR) Negative 04/25/20 04/25/20 19:25 19:25 WBC 7.9 RBC 5.63 Hgb 16.8 H Hct 53.5 POC Hct 51 MCV 95.0 MCH 29.8 MCHC 31.4 RDW 19.3 H Plt Count 190 MPV 10.0 Neut % (Auto) 61.0 Lymph % (Auto) 17.2 [place] % (Auto) 14.3 H Eos % (Auto) 6.9 Baso % (Auto) 0.6 Lymph # (Auto) 1.35 L [place] # (Auto) 1.12 H Eos # (Auto) 0.54 Baso # (Auto) 0.05 Absolute Neutrophils 4.79 VBG Lactic Acid POC Sodium 132 L Sodium POC Potassium 6.9 H* Potassium POC Chloride 101 Chloride Carbon Dioxide POC Total CO2 23 Anion Gap POC BUN 115 H* BUN Creatinine POC Creatinine 14.3 H* GFR Calculation Glucose POC Glucose 77 Calcium POC WB Ioniz Calcium 1.04 L Total Bilirubin AST ALT Alkaline Phosphatase Total Protein Albumin Globulin Albumin/Globulin Ratio SARS-CoV-2 (PCR) A/P Narrative A/P Narrative: A: *Hyperkalemia: missed HD recently -qrs slightly prolonged compared to prior EKG *Dyspnea 2/2 Volume Overload: On room air with sats 90% -Chest x-ray pulmonary vascular congestion *ESRD: *Anemia chronic: *Hyponatremia: *Metabolic acidosis: *Obesity: *TONNY: Not use CPAP *HTN: *Scheduled to see a vascular surgeon for left upper extremity upper swelling at [facility] * P: -urgent HD per Dr. Cutler -fluid balance/diuretics per nephrology -cont home BP meds - - -ppx: heparin full code Time Spent With Patient Time: Total time spent is greater than 50% in coordination of care (as documented) at patient's floor/unit and/or counseling patient:
[2020-04-25] MEDS ORDERED: ONDANSETRON 4 MG/2 ML VIAL IV PRN (22:21)
[2020-04-25] MEDS ORDERED: ACETAMINOPHEN 325 MG TABLET PO PRN (22:21)
[2020-04-25] MEDS ORDERED: POTASSIUM CHLORIDE 20 MEQ TABLET PO PRN (22:21)
[2020-04-25] MEDS ORDERED: MAGNESIUM SULFATE 2 GM/50 ML BAG IV PRN (22:21)
[2020-04-25] MEDS ORDERED: CARVEDILOL 25 MG PO SCH (22:21)
[2020-04-25] MEDS ORDERED: SENNOSIDES 1 TABLET PO PRN (22:21)
[2020-04-25] MEDS ORDERED: POTASSIUM CHLORIDE 40 MEQ in DEXTROSE 5% IN WATER 500 ML IV PRN (22:21)
[2020-04-25] MEDS ORDERED: LABETALOL 5 MG/ML ML IV PRN (22:21)
[2020-04-25] MEDS ORDERED: IPRATROPIUM/ALBUTEROL 3 ML AMPUL.NEB NEB PRN (22:21)
[2020-04-25] MEDS: 0.9 % SODIUM CHLORIDE 10 ML SYRINGE IV SCH (22:50)
[2020-04-25] MEDS ORDERED: CARVEDILOL 6.25 MG TABLET ONE (22:51)
[2020-04-26] MEDS ORDERED: diphenhydrAMINE 25 MG CAPSULE PO ONE (00:42)
[2020-04-26] MEDS ORDERED: diphenhydrAMINE 25 MG CAPSULE ONE (00:51)
--- NOTE | 2020-04-26 03:29 | XRay Report ---
CLINICAL INFORMATION: generalized weakness. Patient missed dialysis COMPARISON: 12/26/2019 FINDINGS: The heart is moderately enlarged. Mediastinum is unremarkable. Pulmonary vessels are mildly distended there is no edema. Lungs are clear. No effusions. Chronic elevation right diaphragm noted. IMPRESSION: Mild volume overload Interpreted and Authenticated by: Umberto Rocha 04/26/20
[2020-04-26] MEDS: 0.9 % SODIUM CHLORIDE 10 ML SYRINGE IV SCH ×3 (05:39→23:29)
[2020-04-26 06:39] LABS: Basophils # (Auto) 0.07 K/mcL (0.00-0.20); Basophils % (Auto) 1.1 % (0.0-2.0); Eosinophils # (Auto) 0.41 K/mcL (0.00-0.70); Eosinophils % (Auto) 6.4 % (0.0-7.0); Hematocrit 52.6 % (41.0-55.0); Hemoglobin 16.2 g/dL (13.5-16.5); Lymphocytes # (Auto) 0.76 K/mcL (1.50-4.80); Lymphocytes % (Auto) 11.8 % (15.0-49.0); Mean Cell Volume 96.9 fL (80.0-100.0); Mean Corpuscular HGB Conc 30.8 g/dL (31.0-36.0); Mean Platelet Volume 10.1 fL (7.4-10.4); Monocytes # (Auto) 0.92 K/mcL (0.10-0.90); Monocytes % (Auto) 14.3 % (1.0-12.0); Neutrophils % (Auto) 66.4 % (38.0-78.0); Platelet Count 150 K/mcL (140-440); RBC 5.43 M/mcL (4.50-5.90); Red Cell Distribution Width 19.6 % (11.5-14.5); WBC 6.4 K/mcL (4.5-11.0)
--- NOTE | 2020-04-26 07:29 | Internal Med Progress Note ---
SUBJECTIVE Subjective Patient information: Note initiated : 04/26/20 at 7:26 am Service Date, if different from initiated Date: [] Patient: Blake Camacho 49 y/o M admitted on 04/25/20 for missed dialysis. Chief Complaint: [] Interval history: History of present illness: Mr. Camacho is a 49 year old M Presents to the ED not feeling well. Does he missed hemodialysis because of transportation issues and that woke up this morning his face was swollen and he knew he needed to get dialysis. Also reports when he is coming in town he was more short of breath when he was walking the gas station. Denies any chest pain coughing fever chills nausea vomiting. The ER he was evaluated with vital signs with oxygen saturations of 90% on room air. Chest x-ray with some pulmonary vascular congestion. Potassium elevated at 7.1. He was contacted for urgent dialysis. 04/26 Feeling better. No new pains or complaints. Had dialysis last night. Calcium within normal limits. Review of Systems: denies headache/fever/chills/nausea/vomiting/chest or abdominal pain/cough/dyspnea/diarrhea. Otherwise see above. Constitutional Vitals: Vital Signs Temp Pulse Resp BP Pulse Ox 97.1 F 93 H 22 115/79 92 04/26/20 04:20 04/26/20 04:20 04/26/20 00:01 04/26/20 04:20 04/26/20 00:01 Period Temp Pulse Resp BP Sys/Lyles Pulse Ox Last 24 Hr 97.1 F-98.2 F 82-96 10-27 107-200/70-113 89-98 Intake and Output 04/25/20 04/26/20 04/26/20 21:59 05:59 13:59 Output Total 38257 Balance -66431 Weight 108.862 kg 108.998 kg Intake & Output: Intake & Output 04/25/20 04/26/20 04/26/20 21:59 05:59 13:59 Output Total 62061 Balance -77052 Weight 108.862 kg 108.998 kg Output: Hemodialysis UF 94109 Other: Stool Size Small Stool Color Brown Yellow Stool Consistency Soft Exam: General: Alert, Awake, No acute Distress, obese Eyes/N/T: EOMI Head/Neck: neck supple, CV: RRR, No murmurs, Pulm: Clear b/l, no wheezing/rhonchi/rales Abd: soft, nontender, +BS x4 Ext: no clubbing/cyanosis, trace LLE edema Neuro: Alert, no focal deficits, moves all extremities, Skin: warm/dry OBJ DATA Labs CBC & Chem 7: 04/26/20 05:32 04/26/20 05:32 Labs: Abnormal Lab Results 04/26/20 04/25/20 04/25/20 05:32 19:25 19:25 Hgb 16.8 H MCHC 30.8 L RDW 19.6 H 19.3 H Lymph % (Auto) 11.8 L [place] % (Auto) 14.3 H 14.3 H Lymph # (Auto) 0.76 L 1.35 L [place] # (Auto) 0.92 H 1.12 H POC Sodium Sodium 132 L POC Potassium Potassium 7.1 H* Chloride 90 L Carbon Dioxide 18 L Anion Gap 24.0 H POC BUN BUN 105 H* Creatinine 13.0 H* POC Creatinine POC WB Ioniz Calcium Alkaline Phosphatase 169 H 04/25/20 19:25 Hgb MCHC RDW Lymph % (Auto) [place] % (Auto) Lymph # (Auto) [place] # (Auto) POC Sodium 132 L Sodium POC Potassium 6.9 H* Potassium Chloride Carbon Dioxide Anion Gap POC BUN 115 H* BUN Creatinine POC Creatinine 14.3 H* POC WB Ioniz Calcium 1.04 L Alkaline Phosphatase Meds: Medications Acetaminophen (Tylenol) 650 mg PO Q6HP PRN PRN Reason: PAIN/FEVER > 101 Albuterol/Ipratropium (Duoneb) 3 ml NEB Q4HP PRN PRN Reason: Shortness Of Breath Carvedilol (Coreg) 50 mg PO QAM MARY Carvedilol (Coreg) 25 mg PO QHS [facility] Heparin Sodium (Porcine) (Heparin) 5,000 unit SQ Q12 MARY Potassium Chloride 40 meq/ (Dextrose) 520 mls @ 130 mls/hr IV UD PRN PRN Reason: Potassium < 3 Magnesium Sulfate (Magnesium Sulfate) 2 gm in 50 mls @ 50 mls/hr IV UD PRN PRN Reason: Magnesium </= 1.6 Labetalol HCl (Trandate) 0 mg IV Q2HP PRN PRN Reason: Hypertension Minoxidil (Minoxidil) 20 mg PO QDAY [facility] Ondansetron HCl (Zofran) 4 mg IV Q4HP PRN PRN Reason: Nausea And Vomiting Potassium Chloride (Kdur) 40 meq PO UD PRN PRN Reason: Potassium < 3 Senna (Senokot) 2 tab PO DAILYP PRN PRN Reason: Constipation Sodium Chloride (Saline Flush) 10 ml IV Q8 [facility] Last Admin: 04/26/20 05:39 Dose: 10 ml Documented by: A/P Narrative A/P Narrative: A: *Hyperkalemia: missed HD recently -qrs slightly prolonged compared to prior EKG -Resolved after HD *Dyspnea 2/2 Volume Overload: On room air with sats 90% -Chest x-ray pulmonary vascular congestion *ESRD 2/2 PKD: *Anemia chronic: *Hyponatremia: *Metabolic acidosis: *Obesity: *TONNY on cpap: *HTN: *Scheduled to see a vascular surgeon for left upper extremity fistula at [facility] P: -emergent HD per Dr. Cutler -fluid balance/diuretics per nephrology -cont home BP meds - -ppx: heparin full code Time Spent With Patient Time: Total time spent is greater than 50% in coordination of care (as documented) at patient's floor/unit and/or counseling patient:
[2020-04-26] MEDS: HEPARIN 5,000 UNIT/ML VIAL SQ SCH ×4 (08:17→20:06)
[2020-04-26 08:19] LABS: ALT/SGPT 31 U/L (<40); AST/SGOT 28 U/L (<40); Albumin/Globulin Ratio 1.4 (1.0-2.3); Alkaline Phosphatase 158 U/L (39-117); Bilirubin,Direct 0.2 mg/dL (<0.3); Bilirubin,Total 0.6 mg/dL (0.1-1.0); Blood Urea Nitrogen 52 mg/dL (6-20); Calcium 8.8 mg/dL (8.6-10.4); Carbon Dioxide 19 mmol/L (22-30); Chloride 92 mmol/L (96-108); Globulin 2.9 gm/dL (2.2-3.7); Glomerular Filtration Rate 7; Glucose 68 mg/dL (70-105); Lactate Dehydrogenase 325 U/L (135-225); Phosphorous 7.2 mg/dL (2.5-4.5); Triglycerides 131 mg/dL (<150); Uric Acid 4.8 mg/dL (2.5-8.0)
[2020-04-26] MEDS ORDERED: MINOXIDIL 2.5 MG TABLET PO SCH (09:00)
[2020-04-26] MEDS ORDERED: CARVEDILOL 12.5 MG TABLET PO SCH ×3 (09:00→21:00)
[2020-04-26] MEDS ORDERED: MINOXIDIL 10 MG TABLET PO SCH (09:00)
--- NOTE | 2020-04-26 09:32 | Consultation ---
DATE OF CONSULTATION: 04/26/2020 REASON FOR CONSULTATION: The patient is a 49-year-old gentleman with history of end-stage renal disease secondary to polycystic kidney disease. He has dialysis on Mondays, Wednesdays, and Fridays. He has been having issues with his left arm AV fistula. The forearm fistula is clotted and the upper arm fistula is working, but it appears that he has central stenosis and has edema and gets recurrent cellulitis as well. He woke up in the morning and was supposed to go for dialysis, but he missed it because of transportation and could not make it to the dialysis. He progressively got short of breath. For that reason, he came into the emergency room. In the emergency room, he had an O2 sat of 90%. Chest x-ray showed pulmonary congestion and potassium came back at 7.1. For that reason, he was hospitalized. PAST MEDICAL HISTORY: 1. End-stage renal disease on hemodialysis. Dialyzes Mondays, Wednesdays, and Fridays. 2. History of hospitalizations for volume overload. 3. History of seizures. 4. Left upper extremity access, which probably has a central stenosis and has recurrent cellulitis. 5. Hyperlipidemia. 6. Hypertension, difficult to control. 7. Obstructive sleep apnea. FAMILY HISTORY: His mother had arthritis, breast cancer, diabetes,and also had cancer of the intestinal tract. Father had hypertension and polycystic kidney disease. There is family history of polycystic kidney disease. SOCIAL HISTORY: He is single. He is a former smoker and occasionally uses marijuana. HOME MEDICATIONS: 1. Carvedilol. 2. Minoxidil. 3. He also is supposed to be on PhosLo as well. ALLERGIES: 1. PENICILLIN. 2. LISINOPRIL. 3. KETAMINE. 4. TRAMADOL. 5. LATEX. PHYSICAL EXAMINATION: GENERAL: He is alert, oriented x3, in no apparent distress. VITAL SIGNS: Blood pressures have been 150-180 systolic with a diastolic in the 90s. Pulse rates have been in the 90s. Pulse oximetry of 90%. HEENT: NC/AT. Pupils are reactive. External ear and tympanic membrane appears normal. Oral cavity appears normal. Normal mucosa. NECK: Supple. No jugular venous distension, no lymphadenopathy, no thyromegaly. LUNGS: Decreased air entry bilaterally. No rales or rhonchi heard. CARDIOVASCULAR: S1, S2 heard. No S3, S4. No murmurs, no rubs. ABDOMEN: Soft, nontender, no organomegaly, positive bowel sounds, no mass, no rebound. EXTREMITIES: Left upper extremity shows significant swelling. Rest of the extremities are okay. LABORATORY DATA: White count is 8.2 with a hemoglobin of 17.3 and a platelet count of 150. Sodium 133, potassium 5.0, chloride of 91, CO2 of 23, BUN of 52 with a creatinine of 9.0. His calcium is 7.3. ASSESSMENT AND PLAN: 1. Hyperkalemia because of missed dialysis. He had missed dialysis treatment last night and the potassium is corrected this morning. 2. End-stage renal disease on hemodialysis. Dialyzes Mondays, Wednesdays, and Fridays. 3. Hypertension, recently difficult to control, blood volume sensitive. 4. Hyperphosphatemia. Continue on his binders. I have written orders for hemodialysis tomorrow if he stays in the hospital. If not, he can go to his morning dialysis treatment at [facility]. Thank you, Dr. Grimes, for referring this patient for consultation. I will follow with you. SHEREEN:celina Job ID: [id number] Doc ID: [id number] Jaylon Cutler MD
[2020-04-26] MEDS ORDERED: POTASSIUM CHLORIDE 40 MEQ in DEXTROSE 5% IN WATER 500 ML IV PRN (12:01)
[2020-04-26] MEDS ORDERED: MAGNESIUM SULFATE 2 GM/50 ML BAG IV PRN (12:01)
[2020-04-26] MEDS ORDERED: SENNOSIDES 1 TABLET PO PRN (12:01)
[2020-04-26] MEDS ORDERED: ACETAMINOPHEN 325 MG TABLET PO PRN (12:01)
[2020-04-26] MEDS ORDERED: POTASSIUM CHLORIDE 20 MEQ TABLET PO PRN (12:01)
[2020-04-26] MEDS ORDERED: ONDANSETRON 4 MG/2 ML VIAL IV PRN (12:01)
[2020-04-26] MEDS ORDERED: LABETALOL 5 MG/ML ML IV PRN (12:01)
[2020-04-26] MEDS ORDERED: IPRATROPIUM/ALBUTEROL 3 ML AMPUL.NEB NEB PRN (12:01)
--- NOTE | 2020-04-26 14:23 | Discharge Summary ---
Discharge Provider Provider Patient information: Note initiated : 04/26/20 at 2:22 pm Service Date, if different from initiated Date: [] Patient: Blake Camacho 49 y/o M admitted on 04/25/20 for missed dialysis. Chief Complaint: [] Date of admission: 04/25/20 22:17 Discharge date: 04/27/20 Primary care physician: Jaylon Cutler Consults: 04/25/20 Consult to Physician [CONS] Stat Comment: Consulting Provider: Bill Grimes Reason For Exam: Physician to Consult Consult to Physician [CONS] Stat Comment: Consulting Provider: Jaylon Cutler Reason For Exam: Physician to Consult 04/25/20 22:21 Consult to Physician [CONS] Routine Comment: Consulting Provider: Jaylon Cutler Reason For Exam: Physician to Consult Discharge Meds Discharge Medications Home Medications Nulecit 62.5 mg IV WEEKLY 03/14/15 [History Confirmed 07/02/19 Last Taken 07/01/19 1 Dose] nut.tx.impaired renal fxn,soy 237 ml PO WEEKLY 03/14/15 [History Confirmed 07/02/19 Last Taken 07/01/19 1 Can] carvedilol 50 mg PO QAM 03/26/16 [History Confirmed 04/26/20 Last Taken 04/25/20 09:00] carvedilol 25 mg PO QHS 03/15/19 [History Confirmed 04/26/20 Last Taken 04/25/20 22:47] minoxidil 20 mg PO QDAY 07/01/19 [History Confirmed 04/26/20 Last Taken 04/25/20 09:00] calcium acetate(phosphat bind) 2,668 mg PO TID 04/26/20 [History Confirmed 04/26/20 Last Taken 04/25/20 08:00] COURSE Hospital Course Hospital course: History of present illness: Mr. Camacho is a 49 year old M Presents to the ED not feeling well. Does he missed hemodialysis because of transportation issues and that woke up this morning his face was swollen and he knew he needed to get dialysis. Also reports when he is coming in town he was more short of breath when he was walking the gas station. Denies any chest pain coughing fever chills nausea vomiting. The ER he was evaluated with vital signs with oxygen saturations of 90% on room air. Chest x-ray with some pulmonary vascular congestion. Potassium elevated at 7.1. He was contacted for urgent dialysis. 04/26 Feeling better. No new pains or complaints. Had dialysis last night. Calcium within normal limits. 04/27 Patient feeling well and quite adamant about leaving. Repeat potassium this morning is elevated 6.3. This was relayed to Dr. Cutler who will dialyze the patient outpatient today. A: *Hyperkalemia: missed HD recently -qrs slightly prolonged compared to prior EKG -Resolved after HD *Dyspnea 2/2 Volume Overload: On room air with sats 90% -Chest x-ray pulmonary vascular congestion *ESRD 2/2 PKD: *Anemia chronic: *Hyponatremia: *Metabolic acidosis: *Obesity: *TONNY on cpap: *HTN: *Scheduled to see a vascular surgeon for left upper extremity fistula at [place] Discharge diagnosis: Hyperkalemia end-stage renal disease volume overload with dyspnea Secondary discharge diagnosis: Chronic anemia hyponatremia metabolic acidosis obesity obstructive sleep apnea hypertension Time Spent with Patient Time attestation: Total time spent providing and/or coordinating discharge services: Time spent: Greater than 30 minutes EXAM Constitutional Vitals: Temp Pulse Resp BP Pulse Ox 97.1 F 90 27 H 136/99 91 04/26/20 11:59 04/26/20 11:59 04/26/20 11:59 04/26/20 11:59 04/26/20 11:59 Discharge Data Data Completed and Pending Labs on day of discharge: Labs from last 24 hours 04/26/20 04/26/20 04/25/20 05:32 05:32 20:37 WBC 6.4 RBC 5.43 Hgb 16.2 Hct 52.6 POC Hct MCV 96.9 MCH 29.8 MCHC 30.8 L RDW 19.6 H Plt Count 150 MPV 10.1 Neut % (Auto) 66.4 Lymph % (Auto) 11.8 L [place] % (Auto) 14.3 H Eos % (Auto) 6.4 Baso % (Auto) 1.1 Lymph # (Auto) 0.76 L [place] # (Auto) 0.92 H Eos # (Auto) 0.41 Baso # (Auto) 0.07 Absolute Neutrophils 4.26 VBG Lactic Acid POC Sodium Sodium 131 L POC Potassium Potassium 5.1 POC Chloride Chloride 92 L Carbon Dioxide 19 L POC Total CO2 Anion Gap 20.0 H POC BUN BUN 52 H Creatinine 8.2 H* POC Creatinine GFR Calculation 7 Glucose 68 L POC Glucose Uric Acid 4.8 Calcium 8.8 POC WB Ioniz Calcium Phosphorus 7.2 H* Magnesium 2.6 H Total Bilirubin 0.6 Direct Bilirubin 0.2 GGT 116 H AST 28 ALT 31 Alkaline Phosphatase 158 H Lactate Dehydrogenase 325 H Total Protein 6.9 Albumin 4.0 Globulin 2.9 Albumin/Globulin Ratio 1.4 Triglycerides 131 SARS-CoV-2 (PCR) Negative 04/25/20 04/25/20 04/25/20 19:25 19:25 19:25 WBC 7.9 RBC 5.63 Hgb 16.8 H Hct 53.5 POC Hct MCV 95.0 MCH 29.8 MCHC 31.4 RDW 19.3 H Plt Count 190 MPV 10.0 Neut % (Auto) 61.0 Lymph % (Auto) 17.2 [place] % (Auto) 14.3 H Eos % (Auto) 6.9 Baso % (Auto) 0.6 Lymph # (Auto) 1.35 L [place] # (Auto) 1.12 H Eos # (Auto) 0.54 Baso # (Auto) 0.05 Absolute Neutrophils 4.79 VBG Lactic Acid 0.9 POC Sodium Sodium 132 L POC Potassium Potassium 7.1 H* POC Chloride Chloride 90 L Carbon Dioxide 18 L POC Total CO2 Anion Gap 24.0 H POC BUN BUN 105 H* Creatinine 13.0 H* POC Creatinine GFR Calculation 4 Glucose 79 POC Glucose Uric Acid Calcium 8.8 POC WB Ioniz Calcium Phosphorus Magnesium Total Bilirubin 0.5 Direct Bilirubin GGT AST 34 ALT 37 Alkaline Phosphatase 169 H Lactate Dehydrogenase Total Protein 7.3 Albumin 4.2 Globulin 3.1 Albumin/Globulin Ratio 1.4 Triglycerides SARS-CoV-2 (PCR) 04/25/20 19:25 WBC RBC Hgb Hct POC Hct 51 MCV MCH MCHC RDW Plt Count MPV Neut % (Auto) Lymph % (Auto) [place] % (Auto) Eos % (Auto) Baso % (Auto) Lymph # (Auto) [place] # (Auto) Eos # (Auto) Baso # (Auto) Absolute Neutrophils VBG Lactic Acid POC Sodium 132 L Sodium POC Potassium 6.9 H* Potassium POC Chloride 101 Chloride Carbon Dioxide POC Total CO2 23 Anion Gap POC BUN 115 H* BUN Creatinine POC Creatinine 14.3 H* GFR Calculation Glucose POC Glucose 77 Uric Acid Calcium POC WB Ioniz Calcium 1.04 L Phosphorus Magnesium Total Bilirubin Direct Bilirubin GGT AST ALT Alkaline Phosphatase Lactate Dehydrogenase Total Protein Albumin Globulin Albumin/Globulin Ratio Triglycerides SARS-CoV-2 (PCR) Discharge Plan Patient/Caregiver Discharge Instructions Activity: increase activity as tolerated Diet: Regular Diet Instructions: Chronic Kidney Disease (DC), Dyspnea (DC) Activity Restrictions/Additional Instructions: Schedule an appointment with your vascular surgeon as was in the process. This discharge packet is provided to you to help keep you informed about your care. We want to ensure you get everything you need when you go home. You will also be receiving a call from us in a few days to follow up with you and see how you are doing since your discharge. This gives us a chance to listen to any concerns you maybe experiencing since you were discharged or any additional needs you may have, as well as providing us feedback on your care experience. We strive to always provide excellent care and thank you for your feedback and for choosing [facility]. Prescriptions: Continued nut.tx.impaired renal fxn,soy 240 ML liquid 237 ml PO WEEKLY RF: 0 Nulecit 62.5 mg IV WEEKLY RF: 0 carvedilol 25 MG tablet 50 mg PO QAM RF: 0 carvedilol 25 MG tablet 25 mg PO QHS RF: 0 minoxidil 10 MG tablet 20 mg PO QDAY RF: 0 calcium acetate(phosphat bind) 667 mg capsule 2,668 mg PO TID RF: 0 Follow Up Plan Follow up with: Jaylon Cutler MD [Primary Care Provider] - (Keep your regular scheduled appointments.) Patient Disposition: Home, Self-Care Prognosis: Undetermined Overall status at discharge: patient is back to baseline Discharge Orders: Discharge Order (Routine); Ordered 04/27/20 Ordered By: Bill Grimes
[2020-04-26] MEDS: CALCIUM ACETATE 667 MG CAPSULE PO SCH (18:41)
[2020-04-26] MEDS ORDERED: diphenhydrAMINE 25 MG CAPSULE PO PRN (19:46)
[2020-04-27] MEDS ORDERED: CARVEDILOL 12.5 MG TABLET PO SCH ×2 (04:00→09:00)
[2020-04-27] MEDS: 0.9 % SODIUM CHLORIDE 10 ML SYRINGE IV SCH (05:26)
[2020-04-27] MEDS: HEPARIN 5,000 UNIT/ML VIAL SQ SCH (08:29)
[2020-04-27] MEDS: CALCIUM ACETATE 667 MG CAPSULE PO SCH (08:29)
[2020-04-27 08:34] LABS: Blood Urea Nitrogen 83 mg/dL (6-20); Calcium 8.7 mg/dL (8.6-10.4); Carbon Dioxide 19 mmol/L (22-30); Chloride 92 mmol/L (96-108); Glomerular Filtration Rate 5; Glucose 85 mg/dL (70-105)
[2020-04-27] MEDS ORDERED: MINOXIDIL 2.5 MG TABLET PO SCH (09:00)
== END 2020-04-27 11:55 | disposition home or self-care (01) | DRG 640 ==
LOC: ED 19:11 → ICU 22:17 → MEDSUR 04-26 16:00
PROVIDERS: ADMIT Internal Medicine; ATTEND Internal Medicine